=== PATIENT | female | born 1960 | race Caucasian/White ===

== ENCOUNTER 2020-08-20 08:58 | Outpatient (REF) | payer MEDICARE, MEDICAID, SELFPAY ==
--- NOTE | 2020-08-20 | MM_ITS ---
EXAMINATION: MM SCREENING DIGITAL BREAST TOMOSYNTHESIS, BILATERAL CLINICAL INFORMATION: Screening. Asymptomatic. The lifetime risk of breast cancer based on the Tyrer-Cuzick Model is 5%. COMPARISON: Mammography: 08/15/2019, 07/18/2018 TECHNIQUE: Digital breast tomosynthesis is performed in both the craniocaudal and mediolateral oblique views along with computer-aided detection (CAD). Synthesized 2D images are generated from the tomosynthesis. FINDINGS: The breasts are heterogeneously dense, which may obscure small masses (ACR BI-RADS breast composition Category c). Breast tissue borders on average fibroglandular. There are no significant masses, abnormal calcifications, or other abnormalities. There are scattered regional round calcifications in each breast. Low right axillary tail node again seen MLO view. No significant changes. IMPRESSION: No significant changes from prior studies. ASSESSMENT: BI-RADS 2: Benign RECOMMENDATION: Routine annual mammography screening. This patient's information was entered into a reminder system with a target due date for their next mammogram.
== END 2020-08-20 08:59 | disposition home or self-care (01) ==
LOC: HO.MAMMO 08:58
PROVIDERS: PCP Pediatrics; Visit Provider Pediatrics
DX: Z12.31 Encounter for screening mammogram for malignant neoplasm of breast (principal)
CPT/HCPCS: 77063; 77067; 78014

== ENCOUNTER 2020-12-02 09:13 | Outpatient (REF) | payer MEDICARE, MEDICAID, SELFPAY ==
--- NOTE | 2020-12-02 09:18 | MM_ITS ---
EXAMINATION: BONE DENSITOMETRY CLINICAL INDICATION: Osteoporosis. COMPARISON: Previous BD dated 11/24/2018 and baseline BD dated 07/27/2011. TECHNIQUE: Using a [employer] DXA System (software version: 13.1) manufactured by [employer], dual-energy x-ray absorptiometry was performed of the lumbar spine and left hip. The images are of good technical quality. Summary results are attached. FINDINGS: AP SPINE L1-L4: Current: BMD 0.942 g/cm2, Z-score -0.6, T-score -2.0, osteopenia, 1.3% increase from previous, 7.8% decrease from baseline (<5% change is not significant). Prior: BMD 0.930 g/cm2. Baseline: BMD 1.022 g/cm2. LEFT FEMUR, NECK: Current: BMD 0.638 g/cm2, Z-score -1.5, T-score -2.9, osteoporosis. Prior: BMD 0.661 g/cm2. Baseline: BMD 0.755 g/cm2. LEFT FEMUR, TOTAL: Current: BMD 0.600 g/cm2, Z-score -2.2, T-score -3.2, osteoporosis, 3.7% decrease from previous, 16.2% decrease from baseline (<5% change is not significant). Prior: BMD 0.623 g/cm2. Baseline: BMD 0.716 g/cm2. IDENTIFIED RISK FACTORS: Osteoporosis, tobacco use (current smoker), low calcium intake. Early menopause, secondary osteoporosis. HISTORY OF FRACTURE: None listed. MEDICATIONS: Calcium supplements or multivitamin, vitamin D. MM/XR DEXA axial skeleton IMPRESSION: 1. DIAGNOSIS: Osteoporosis based on the lowest T-score value of -3.2 in the total femur applying World Health Organization criteria. 2. 10-YEAR FRACTURE RISK PREDICTION, FRAX: Major osteoporotic fracture (clinical spine, forearm, hip or shoulder) 14.1%. Hip fracture 5.5%. 3. Treatment Recommendations: NOF guidelines recommend consideration for treatment in postmenopausal women and men age 50 and older presenting with the following: -A hip or vertebral (clinical or morphometric) fracture. -T-score less than or equal to -2.5 at the femoral neck or spine after appropriate evaluation to exclude secondary causes. -Low bone mass at the hip or spine and a 10-year fracture probability by FRAX of greater than or equal to 3% for hip fracture or greater than or equal to 20% for major osteoporotic fracture based on the [place] adapted WHO algorithm. 4. Other Recommendations: All treatment decisions require clinical judgment and consideration of individual patient factors, including patient preferences, comorbidities, previous drug use, risk factors not captured in the FRAX model (e.g. frailty, falls, vitamin D deficiency, increased bone turnover, interval significant decline in bone density) and possible under or overestimation of fracture risk by FRAX. Additional medical evaluation for secondary cause of low bone mineral density may be appropriate. FUTURE SCAN RECOMMENDATION: People with diagnosed cases of osteoporosis or at high risk for fracture should have regular bone mineral density tests. For patients eligible for Medicare, routine testing is allowed once every 2 years. The testing frequency can be increased to one year for patients who have rapidly progressing disease, those who are receiving or discontinuing medical therapy to restore bone mass, or have additional risk factors.
== END 2020-12-02 09:14 | disposition home or self-care (01) ==
LOC: HO.MAMMO 09:13
PROVIDERS: PCP Pediatrics; Visit Provider Pediatrics
DX: M81.0 Age-related osteoporosis without current pathological fracture (principal)
CPT/HCPCS: 77080

== ENCOUNTER 2021-06-15 10:10 | Outpatient (REF) | payer MEDICARE, MEDICAID, SELFPAY ==
--- NOTE | ~2021-06-15 | XR_ITS ---
EXAMINATION: XR CHEST CLINICAL INFORMATION: COPD. COMPARISON: None TECHNIQUE: 2 views of the chest were obtained. FINDINGS: Lungs are hyperinflated but clear of acute process. The heart size and vascularity is normal. No gross bony or body seen. XR/XR chest 2V IMPRESSION: Hyperinflated lungs without acute process.
== END 2021-06-15 10:11 | disposition home or self-care (01) ==
LOC: HO.XRAY 10:10
PROVIDERS: PCP Pediatrics; Visit Provider Internal Medicine
DX: J44.9 Chronic obstructive pulmonary disease, unspecified (principal); F17.210 Nicotine dependence, cigarettes, uncomplicated; Z79.899 Other long term (current) drug therapy
CPT/HCPCS: 71046; 99202

== ENCOUNTER 2021-06-26 09:53 | Outpatient (REF) | payer MEDICARE, MEDICAID, SELFPAY ==
--- NOTE | 2021-06-26 16:50 | PFT_ITS ---
Forced vital capacity is slightly decreased. FEV1 moderately decreased. [id number] is markedly decreased and MVV moderately decreased. Post bronchodilator therapy, there is a significant improvement in FEV1, [id number], and MVV. Total lung capacity normal and residual volume moderately increased. Diffusion capacity moderately decreased. CONCLUSION: Moderately severe obstructive airway disorder. Partial reversibility after bronchodilator therapy is noted. Clinical correlation recommended. MD JACOB Agustin/MODL / [id number]
== END 2021-06-26 09:54 | disposition home or self-care (01) ==
LOC: HO.RESP 09:53
PROVIDERS: PCP Pediatrics; Visit Provider Internal Medicine
DX: J44.9 Chronic obstructive pulmonary disease, unspecified (principal); F17.200 Nicotine dependence, unspecified, uncomplicated
CPT/HCPCS: 94060; 94727; 94729

== ENCOUNTER → 2021-07-09 11:11 | Outpatient (BNVA) | payer MEDICARE, MEDICAID, SELFPAY | PROVIDERS: PCP Pediatrics; Visit Provider Internal Medicine | DX: J44.9 Chronic obstructive pulmonary disease, unspecified (principal); F17.200 Nicotine dependence, unspecified, uncomplicated | CPT/HCPCS: 99212 ==

== ENCOUNTER 2021-07-17 13:57 | Outpatient (REF) | payer MEDICARE, MEDICAID, SELFPAY ==
--- NOTE | ~2021-07-17 | CT_ITS ---
EXAMINATION: CT CHEST SCREENING CLINICAL INFORMATION: Current smoker. COMPARISON: Previous chest x-ray June 2021. TECHNIQUE: Multidetector volumetric CT imaging of the chest is performed without contrast using low dose technique. Additional 2D coronal and sagittal reformatted images and axial 3D maximum intensity projection (MIP) images are generated on the CT workstation. This CT examination was performed using dose optimization techniques as appropriate, variously including the following: *Automated exposure control *Adjustment of mA and/or kV according to patient size (this includes techniques or standardized protocols for targeted exams where dose is matched to indication/reason for exam; i.e. extremities or head) *Use of iterative reconstruction technique DLP: 36 mGy-cm FINDINGS: LUNGS: There is emphysema. There is a 4 mm semisolid left upper lobe nodule axial image 61 series 4. There is a 2 mm peripheral right upper lobe nodule axial image 89 series 4. There is a 3 mm semisolid left upper lobe peripheral nodule axial image 132 series 4. There is a 4 mm semisolid left lower lobe nodule axial image 204 series 4. There is a 2 mm peripheral or subpleural left lower lobe nodule axial image 200 series 4. There is a 2 mm peripheral or subpleural left lower lobe nodule adjacent to the fissure axial image 236 series 4. There is a 3 mm left upper lobe nodule axial 240 series 4. There is a 3 mm calcified right middle lobe nodule axial image 252 series 4. There is a 3 mm semisolid left lower lobe nodule axial image 275 series 4. There is a 4 mm semisolid right lower lobe nodule axial image 292 series 4. There is linear scarring or subsegmental atelectasis in the right upper and middle lobes. No endobronchial or endotracheal lesion is seen. MEDIASTINUM: The heart does not appear enlarged. There is a trace pericardial effusion. There is coronary artery calcification. The thoracic aorta is normal in caliber. The aorta is heavily calcified. There are no enlarged hilar or mediastinal lymph nodes. The visualized thyroid gland is unremarkable. PLEURA: There is no pleural effusion. No pleural mass or thickening. AXILLA: No lymphadenopathy. UPPER ABDOMEN: The aorta is heavily calcified. OSSEOUS STRUCTURES: There are degenerative changes of the spine. CT/CT lung screening IMPRESSION: Emphysema. Small pulmonary nodules, largest measuring 4 mm in the left upper and right lower lobes. Coronary artery and aortic calcification. ASSESSMENT: Lung-RADS category 2: Benign. RECOMMENDATION: Annual low-dose chest CT follow-up recommended.
== END 2021-07-17 13:58 | disposition home or self-care (01) ==
LOC: HO.CT 13:57
PROVIDERS: Visit Provider Physician Assistant Medical
DX: Z12.2 Encounter for screening for malignant neoplasm of respiratory organs (principal); F17.210 Nicotine dependence, cigarettes, uncomplicated
CPT/HCPCS: 71271

== ENCOUNTER 2021-07-23 14:13 | Outpatient (REF) | payer MEDICARE, MEDICAID, SELFPAY ==
--- NOTE | ~2021-07-23 | XR_ITS ---
EXAMINATION: XR FOOT, LEFT CLINICAL INFORMATION: Pain left foot COMPARISON: None TECHNIQUE: AP, lateral, and oblique views of the left foot. FINDINGS: There is no acute or healing fracture, dislocation, destructive process. No ankle capsular effusion. The retrocalcaneal recess is preserved. The subtalar joint appears normal. No calcaneal spurring. The midfoot and MTP joints show no focal narrowing or erosive change. There is mild narrowing interphalangeal joints. No erosive changes. XR/XR foot LT min 3V IMPRESSION: Mild narrowing interphalangeal joints. No erosive changes.
--- NOTE | ~2021-07-23 | XR_ITS ---
EXAMINATION: XR FOOT, RIGHT CLINICAL INFORMATION: Pain in right foot COMPARISON: None TECHNIQUE: AP, lateral, and oblique views of the right foot. FINDINGS: No fracture. No dislocation. Normal mineralization and alignment. No radiopaque foreign body. XR/XR foot RT min 3V IMPRESSION: No acute osseous abnormality of the right foot.
== END 2021-07-23 14:14 | disposition home or self-care (01) ==
LOC: HO.XRAY 14:13
PROVIDERS: Absent Provider Pediatrics; PCP Pediatrics; Visit Provider Internal Medicine
DX: M79.671 Pain in right foot (principal); M79.672 Pain in left foot
CPT/HCPCS: 73630

== ENCOUNTER 2021-08-21 09:34 | Outpatient (REF) | payer MEDICARE, MEDICAID, SELFPAY ==
--- NOTE | ~2021-08-21 | MM_ITS ---
EXAMINATION: MM SCREENING DIGITAL BREAST TOMOSYNTHESIS, BILATERAL CLINICAL INFORMATION: Screening. Asymptomatic. The lifetime risk of breast cancer based on the Tyrer-Cuzick Model is 5%. COMPARISON: Mammography: 08/20/2020, 08/15/2019, 07/18/2018 TECHNIQUE: Digital breast tomosynthesis is performed in both the craniocaudal and mediolateral oblique views along with computer-aided detection (CAD). Synthesized 2D images are generated from the tomosynthesis. Additional bilateral MLO views are obtained. FINDINGS: The breasts are heterogeneously dense, which may obscure small masses (ACR BI-RADS breast composition Category c). There are no significant masses, abnormal calcifications, or other abnormalities. Breast tissue composition borders on average fibroglandular. Parenchymal pattern is similar to prior studies. There are scattered bilateral calcifications again seen similar in number and distribution to prior study. Axillary nodes are stable. Skin contours are smooth. No significant changes. MM/MM tomosynthesis screening BI IMPRESSION: No mammographic evidence of malignancy. ASSESSMENT: BI-RADS 2: Benign RECOMMENDATION: Routine annual mammography screening. This patient's information was entered into a reminder system with a target due date for their next mammogram.
== END 2021-08-21 09:35 | disposition home or self-care (01) ==
LOC: HO.MAMMO 09:34
PROVIDERS: Visit Provider Pediatrics
DX: Z12.31 Encounter for screening mammogram for malignant neoplasm of breast (principal)
CPT/HCPCS: 77063; 77067

== ENCOUNTER 2021-09-10 13:57 | Outpatient (REF) | payer MEDICARE, MEDICAID, SELFPAY ==
--- NOTE | ~2021-09-10 | CT_ITS ---
EXAMINATION: CT ANGIOGRAM HEAD CLINICAL INFORMATION: Cerebral aneurysm. COMPARISON: None available. TECHNIQUE: Initial noncontrast ruby on rails engineer imaging of the head was performed. Noncontrast head CT was also performed. Test bolus sequences followed by intravenous administration 75 mL of Omnipaque 350. Helical imaging was performed in the axial plane from the skull base to the skull vertex. Delayed postcontrast imaging of the head was also performed. The data was processed at the interventional radiology technologist's workstation for generation of MIP sequences. Angled MIPs and volume rendered reformatted images were also generated at an offline 3D workstation. Stenoses are assessed in accordance with NASCET criteria unless otherwise indicated. This CT examination was performed using dose optimization techniques as appropriate, variously including the following: *Automated exposure control. *Adjustment of mA and/or kV according to patient size (this includes techniques or standardized protocols for targeted exams where dose is matched to indication/reason for exam; i.e. extremities or head). *Use of iterative reconstruction technique. DLP: 1933 mGy-cm FINDINGS: CT Head: Changes of prior right pterional craniotomy. Metallic aneurysm clips are in place along the right carotid terminus and M1-M2 junction of the right MCA. There is no evidence of acute intracranial hemorrhage or edematous territorial infarction. A few foci of hypoattenuation in the periventricular and deep white matter are consistent with mild microangiopathy. Rodriguez-white matter differentiation is preserved. The ventricles are normal in size and configuration. No evidence for obstructive hydrocephalus. No abnormal mass effect or midline shift. No extra-axial fluid collections. No pathologic intra-axial enhancement or regional oligemia. No acute soft tissue or osseous abnormalities. Mild mucosal thickening of the paranasal sinuses. Rightward nasal septal spurring. The mastoid air cells and middle ear cavities are clear. Moderate degenerative arthropathy of the temporal mandibular joints. Brain CTA: Intracranial Internal Carotid Arteries: Mild calcific atherosclerotic disease of the intracranial internal carotid arteries without occlusion or flow-limiting stenosis. Triangular 0.2 cm right-sided and 0.3 cm left-sided infundibulotomy of the origins of the posterior commuting arteries. Right Anterior Cerebral Artery: Normal A1 segment. Normal opacification of the distal segments of the JUSTO. Left Anterior Cerebral Artery: Normal A1 segment. Normal opacification of the distal segments of the JUSTO. Anterior Communicating Artery: Normal. Right Middle Cerebral Artery: Normal opacification of the M1 segment of the MCA without focal stenosis or occlusion. Normal arborization of the distal segments. Left Middle Cerebral Artery: Normal opacification of the M1 segment of the MCA without focal stenosis or occlusion. Normal arborization of the distal segments. Right Vertebral Artery: Normal opacification of the V4 segment. Normal opacification of the proximal segments of the posterior inferior cerebellar artery. Left Vertebral Artery: Normal opacification of the V4 segment. Normal opacification of the proximal segments of the posterior inferior cerebellar artery. Basilar Artery: Normal opacification without focal stenosis or occlusion. Normal appearance of the proximal superior cerebellar arteries. Right Posterior Cerebral Artery: Normal P1 segment. Normal posterior communicating artery. Normal opacification of the distal segments of the MEDIA STRATEGIST. Left Posterior Cerebral Artery: The P1 segment is diminutive. origin of the MEDIA STRATEGIST with robust opacification of the posterior communicating artery. Normal opacification of the distal segments of the MEDIA STRATEGIST. Normal opacification of the superior sagittal, straight, transverse, and sigmoid sinuses. CT/CT angio head IMPRESSION: 1. Changes of prior surgical clipping of right ICA and MCA aneurysms. 2. Otherwise, CTA of the head without proximal occlusion, flow-limiting stenosis, or persistent opacification of aneurysms.
[2021-09-10] MEDS: iohexoL 350 MG/ML 100 ML INFUS..BTL 75 ML IV (15:35)
== END 2021-09-10 13:58 | disposition home or self-care (01) ==
LOC: HO.CT 13:57
PROVIDERS: PCP Pediatrics; Visit Provider Internal Medicine
DX: I67.1 Cerebral aneurysm, nonruptured (principal)
CPT/HCPCS: 70496; Q9967

== ENCOUNTER → 2021-12-03 11:11 | Outpatient (BNVA) | payer MEDICARE, MEDICAID, SELFPAY | PROVIDERS: PCP Pediatrics; Visit Provider Internal Medicine | DX: J44.9 Chronic obstructive pulmonary disease, unspecified (principal); F17.200 Nicotine dependence, unspecified, uncomplicated | CPT/HCPCS: Q3014 ==

== ENCOUNTER → 2022-02-08 10:24 | Outpatient (BNVA) | payer MEDICARE, MEDICAID, SELFPAY | PROVIDERS: PCP Pediatrics; Visit Provider Internal Medicine | DX: J44.1 Chronic obstructive pulmonary disease with (acute) exacerbation (principal); F17.210 Nicotine dependence, cigarettes, uncomplicated | CPT/HCPCS: 99212 ==

== ENCOUNTER → 2022-02-22 14:13 | Outpatient (BNVA) | payer MEDICARE, MEDICAID, SELFPAY | PROVIDERS: PCP Pediatrics; Visit Provider Internal Medicine | DX: J44.1 Chronic obstructive pulmonary disease with (acute) exacerbation (principal); F17.210 Nicotine dependence, cigarettes, uncomplicated | CPT/HCPCS: 99212 ==

== ENCOUNTER → 2022-05-25 11:31 | Outpatient (BNVA) | payer MEDICARE, MEDICAID, SELFPAY | PROVIDERS: PCP Pediatrics; Visit Provider Internal Medicine | DX: J44.9 Chronic obstructive pulmonary disease, unspecified (principal); F17.210 Nicotine dependence, cigarettes, uncomplicated; Z79.899 Other long term (current) drug therapy | CPT/HCPCS: 99212 ==

== ENCOUNTER 2022-09-10 11:14 | Outpatient (REF) | payer MEDICARE, MEDICAID, SELFPAY ==
--- NOTE | ~2022-09-10 | MM_ITS ---
EXAMINATION: MM SCREENING DIGITAL BREAST TOMOSYNTHESIS, BILATERAL CLINICAL INFORMATION: Screening. Asymptomatic. The lifetime risk of breast cancer based on the Tyrer-Cuzick Model is 4%. COMPARISON: Mammography: 08/21/2021, 08/20/2020, 08/15/2019 TECHNIQUE: Digital breast tomosynthesis is performed in both the craniocaudal and mediolateral oblique views along with computer-aided detection (CAD). Synthesized 2D images are generated from the tomosynthesis. FINDINGS: The breasts are heterogeneously dense, which may obscure small masses (ACR BI-RADS breast composition Category c). Breast tissue composition borders on average fibroglandular. Parenchymal pattern is similar to prior exams and there is no developing density or architectural abnormality. Scattered bilateral punctate round calcifications are similar to prior exams. There are no significant masses, abnormal calcifications, or other abnormalities. The axilla and skin contours are unremarkable. MM/MM tomosynthesis screening BI IMPRESSION: No mammographic evidence of malignancy. ASSESSMENT: BI-RADS 2: Benign RECOMMENDATION: Routine annual mammography screening. This patient's information was entered into a reminder system with a target due date for their next mammogram.
== END 2022-09-10 11:15 | disposition home or self-care (01) ==
LOC: HO.MAMMO 11:14
PROVIDERS: PCP Pediatrics; Visit Provider Pediatrics
DX: Z12.31 Encounter for screening mammogram for malignant neoplasm of breast (principal)
CPT/HCPCS: 77063; 77067

== ENCOUNTER → 2022-11-23 09:44 | Outpatient (BNVA) | payer MEDICARE, MEDICAID, SELFPAY | PROVIDERS: PCP Pediatrics; Visit Provider Internal Medicine | DX: J44.9 Chronic obstructive pulmonary disease, unspecified (principal); F17.210 Nicotine dependence, cigarettes, uncomplicated; Z79.899 Other long term (current) drug therapy | CPT/HCPCS: 99212 ==

== ENCOUNTER 2022-12-16 09:54 | Outpatient (REF) | payer MEDICARE, MEDICAID, SELFPAY ==
--- NOTE | ~2022-12-16 | CT_ITS ---
EXAMINATION: CT CHEST SCREENING CLINICAL INFORMATION: Current smoker. Nicotine dependence. COMPARISON: 07/17/2021 TECHNIQUE: Multidetector volumetric CT imaging of the chest is performed without contrast using low dose technique. Additional 2D coronal and sagittal reformatted images and axial 3D maximum intensity projection (MIP) images are generated on the CT workstation. This CT examination was performed using dose optimization techniques as appropriate, variously including the following: *Automated exposure control *Adjustment of mA and/or kV according to patient size (this includes techniques or standardized protocols for targeted exams where dose is matched to indication/reason for exam; i.e. extremities or head) *Use of iterative reconstruction technique DLP: 42 mGy-cm FINDINGS: LUNGS: The central airways are patent. Moderate centrilobular and paraseptal emphysema. No dense consolidation. Multiple pulmonary nodules are again noted with select nodules characterized below: 1. 0.3 cm left apical nodule on series 5 image 77 is unchanged. 2. Peripheral 0.2 cm right upper lobe nodule on series 5 image 102 is unchanged. 3. 0.3 cm peripheral left upper lobe nodule on series 5 image 153 is unchanged. 4. 0.4 cm posterior right lower lobe nodule on series 5 image 282 is unchanged. There are additional small nodules which are also unchanged. No new pulmonary nodules. A few calcified granulomata are also present. MEDIASTINUM: Normal heart size. Mild coronary artery calcification. No pericardial effusion. No mediastinal lymphadenopathy. CORONARY ARTERY CALCIFICATION: Present PLEURA: There is no pleural effusion. No pleural mass or thickening. AXILLA: No lymphadenopathy. UPPER ABDOMEN: Unremarkable OSSEOUS STRUCTURES: No acute or suspicious osseous abnormality. Mild degenerative change throughout the spine. Focus of sclerosis in the T4 vertebral body is unchanged. CT/CT lung screening IMPRESSION: Moderate emphysema. Multiple small pulmonary nodules are unchanged from prior imaging. ASSESSMENT: Lung-RADS category 2: Benign RECOMMENDATION: Routine annual low-dose CT screening in 12 months.
== END 2022-12-16 09:55 | disposition home or self-care (01) ==
LOC: HO.CT 09:54
PROVIDERS: PCP Pediatrics; Visit Provider Physician Assistant Medical
DX: Z12.2 Encounter for screening for malignant neoplasm of respiratory organs (principal); F17.210 Nicotine dependence, cigarettes, uncomplicated
CPT/HCPCS: 71271

== ENCOUNTER 2022-12-22 12:47 | Outpatient (REF) | payer MEDICARE, MEDICAID, SELFPAY ==
--- NOTE | ~2022-12-22 | XR_ITS ---
EXAMINATION: XR HAND, LEFT CLINICAL INFORMATION: Pain COMPARISON: None TECHNIQUE: 3 views of the hand FINDINGS: No fracture or dislocation. Joint spaces are maintained. No cortical erosion. Soft tissues are unremarkable. XR/XR hand LT min 3V IMPRESSION: No acute osseous abnormality.
== END 2022-12-22 12:48 | disposition home or self-care (01) ==
LOC: HO.XRAY 12:47
PROVIDERS: PCP Pediatrics; Visit Provider Pediatrics
DX: M79.645 Pain in left finger(s) (principal)
CPT/HCPCS: 73130

== ENCOUNTER 2022-12-29 08:36 | Outpatient (REF) | payer MEDICARE, MEDICAID, SELFPAY ==
--- NOTE | ~2022-12-29 | MM_ITS ---
EXAMINATION: BONE DENSITOMETRY CLINICAL INDICATION: Age-related osteoporosis without current pathological fracture. Post menopausal. COMPARISON: Previous BD dated 12/02/2020 and baseline BD dated 07/27/2011. TECHNIQUE: Using a [employer] DXA System (software version: 13.1) manufactured by [email or web address], dual-energy x-ray absorptiometry was performed of the lumbar spine and left hip. The images are of good technical quality. Summary results are attached. FINDINGS: AP SPINE L1-L4: Current: BMD 0.853 g/cm2, Z-score -1.3, T-score -2.7, osteoporosis, 9.4% decrease from previous, 16.5% decrease from baseline (<5% change is not significant). Prior: BMD 0.942 g/cm2. Baseline: BMD 1.022 g/cm2. LEFT FEMUR, NECK: Current: BMD 0.712 g/cm2, Z-score -1.0, T-score -2.3, osteopenia. Prior: BMD 0.638 g/cm2. Baseline: BMD 0.755 g/cm2. LEFT FEMUR, TOTAL: Current: BMD 0.640 g/cm2, Z-score -1.8, T-score -2.9, osteoporosis, 6.7% increase from previous, 10.6% decrease from baseline (<5% change is not significant). Prior: BMD 0.600 g/cm2. Baseline: BMD 0.716 g/cm2. IDENTIFIED RISK FACTORS: Osteoporosis. Current smoker. Secondary osteoporosis (early menopause). HISTORY OF FRACTURE: None listed. MEDICATIONS: Calcium supplement and/or multivitamin. Vitamin D. MM/XR DEXA axial skeleton IMPRESSION: 1. DIAGNOSIS: Osteoporosis based on the lowest T-score value of -2.9 in the total femur applying World Health Organization criteria. 2. 10-YEAR FRACTURE RISK PREDICTION, FRAX: According to the guidelines, FRAX calculation should only be performed on patients in the osteopenia bone density category.?Therefore, FRAX was not performed on this patient.? 3. Treatment Recommendations: NOF guidelines recommend consideration for treatment in postmenopausal women and men age 50 and older presenting with the following: -A hip or vertebral (clinical or morphometric) fracture. -T-score less than or equal to -2.5 at the femoral neck or spine after appropriate evaluation to exclude secondary causes. -Low bone mass at the hip or spine and a 10-year fracture probability by FRAX of greater than or equal to 3% for hip fracture or greater than or equal to 20% for major osteoporotic fracture based on the [place] adapted WHO algorithm. 4. Other Recommendations: All treatment decisions require clinical judgment and consideration of individual patient factors, including patient preferences, comorbidities, previous drug use, risk factors not captured in the FRAX model (e.g. frailty, falls, vitamin D deficiency, increased bone turnover, interval significant decline in bone density) and possible under or overestimation of fracture risk by FRAX. Additional medical evaluation for secondary cause of low bone mineral density may be appropriate. FUTURE SCAN RECOMMENDATION: People with diagnosed cases of osteoporosis or at high risk for fracture should have regular bone mineral density tests. For patients eligible for Medicare, routine testing is allowed once every 2 years. The testing frequency can be increased to one year for patients who have rapidly progressing disease, those who are receiving or discontinuing medical therapy to restore bone mass, or have additional risk factors.
== END 2022-12-29 08:37 | disposition home or self-care (01) ==
LOC: HO.MAMMO 08:36
PROVIDERS: PCP Pediatrics; Visit Provider Pediatrics
DX: M81.0 Age-related osteoporosis without current pathological fracture (principal)
CPT/HCPCS: 77080

== ENCOUNTER 2023-04-07 11:39 | Outpatient (REF) | payer MEDICARE, MEDICAID, SELFPAY ==
--- NOTE | 2023-04-07 10:15 | EMG_ITS ---
Left median and ulnar motor and sensory studies were performed. Left radial sensory study was performed and paraspinal muscles were tested with a needle. IMPRESSION: Mild left ulnar neuropathy across cubital tunnel. MD JAYLIN Herndon/MEENAKSHI / [id number]
== END 2023-04-07 11:40 | disposition home or self-care (01) ==
LOC: HO.NEURO 11:39
PROVIDERS: PCP Pediatrics; Visit Provider Pediatrics
DX: G56.02 Carpal tunnel syndrome, left upper limb (principal)
CPT/HCPCS: 95886; 95909

== ENCOUNTER 2023-05-24 10:36 | Outpatient (AMB) | payer MEDICARE, MEDICAID, SELFPAY ==
--- NOTE | 2023-05-24 10:50 | MHC.OFFVIS ---
Intake Vital Signs 05/24/23 10:52 Height 5 ft 3 in Weight 130 lb BMI 23.0 BP 122/70 Blood Pressure Location Lt brachial Position Sitting Pulse 77 Pulse Source Pulse Oximeter Pulse Oximetry (%) 94 Oxygen Delivery Method Room Air Intake Visit Reasons: COPD Intake Note: pt is here for follow up and states she is doing okay and she wants to mention that after Breo she has a double breath to clear it. It Infrastructure Consultant Required: No Allergies No Known Allergies Allergy (Verified 05/24/23 11:22) Medication List - Last Reconciled 05/24/23 by Latasha Caceres MD albuterol sulfate 90 mcg/actuation (Ventolin HFA) 2 puffs inhalation Q6H PRN Breo Ellipta 200-25 mcg/dose (fluticasone furoate-vilanterol) 1 inh inhalation Q24H 90 days NS cholecalciferol (vitamin D3) 25 mcg PO DAILY multivitamin (Daily Multi-Vitamin tablet) 1 tab PO DAILY tiotropium bromide (Spiriva with HandiHaler) 1 cap inhalation DAILY vitamin B complex (B Complex-Vitamin B12 tablet) 1 tab PO DAILY Do you need a note to return to daycare/school/sports/work: No HPI COPD HPI Details This 62 years old very pleasant female is here for her 6 months follow-up. Breathing sarmiento has remained very stable, and needing to use the rescue inhaler only once in a while. Gets short of breath if she has to climb stairs or walk a few blocks on the level ground. She has no problem is day-to-day activity. She does have mild intermittent cough, but that is due to continued smoking. SHE SMOKES ABOUT 10 CIGARETTES A DAY. She does participate in annual lung screening program. Lost LDCT, in December 2022, was benign, but she does have multiple small pulmonary nodules. [facility] Medical History (Updated 05/24/23 @ 11:28 by Latasha Caceres MD) COPD (chronic obstructive pulmonary disease) COPD exacerbation COVID-19 Depression with anxiety History of cerebral aneurysm (~2014) History of COVID-19 (~03/2021) History of TIA (transient ischemic attack) (~2014) Osteoporosis (~2013) Personal history of nicotine dependence Pulmonary nodules Surgical History History of surgery for cerebral aneurysm (~2014) History of tubal ligation (~1988) Social History Alcohol intake: current Alcohol intake frequency: holidays/special occasions only Patient Tobacco Use Status: Current everyday Tobacco user Tobacco use type: Cigarette Cigarettes Per Day: 8 Years Smoked: 42 (onset 18 - 1ppd x 20yrsn now 1/2ppd - 30pyh) Advance Directives Date on File: 08/20/20 Review of Systems Const All systems reviewed & are unremarkable except as noted in HPI and below Eyes Reports no additional complaints ENT Reports nasal congestion (Mild) and Reports neck pain (Complains of mild stiffness of the neck and pain) Card Denies chest pain, Denies irregular heart rhythm and Denies leg edema Resp Reports as per HPI GI Reports no additional complaints Reports no additional complaints Musc Reports neck pain (Complains of mild stiffness of the neck and pain) Skin/Breast Reports system reviewed and no additional complaints, except as documented Neuro Reports no additional complaints Psych Reports no additional complaints Physical Exam Vital Signs: Last Vital Signs Pulse 77 05/24/23 10:52 BP 122/70 05/24/23 10:52 Pulse Ox 94 05/24/23 10:52 Oxygen Delivery Method Room Air 05/24/23 10:52 BMI result Body Mass Index 23.0 Const General: comfortable, no acute distress, alert and awake Orientation/consciousness: patient oriented x3 HEENT Head: Yes normal to inspection General nose exam: No nasal polyps present and No nasal discharge present Face and sinus: Yes sinuses nontender Mouth: oropharynx normal Throat: Yes posterior oropharynx normal Eyes General: appearance normal, both eyes and all related structures Neck Neck: Yes normal visual inspection, Yes no lymphadenopathy, Yes trachea midline and Yes no JVD Thyroid: Thyroid normal Chest Chest palpation & inspection: normal inspection of the chest, normal palpation of entire chest wall and no tenderness Resp Other: Percussion note is resonant, breath sounds are diminished on both sides with prolonged expiratory phase. No wheezes rhonchi or crepitations are heard today. Cardio Palpation: normal PMI Rate: regular rate Rhythm: regular rhythm Heart sounds: no gallops and no murmurs Peripheral pulses: Peripheral pulses 2+ throughout GI Palpation (GI): Soft to palpation, nontender, No hepatosplenomegaly present and no masses Auscultation: normal bowel sounds Back/Spine/Pelvis Thoracic/Lumbar Spine: thoracic and lumbar spine normal to inspection Skin General skin exam: no rashes or lesions noted Neuro General: patient oriented x3 and no focal motor deficits Cranial nerves: Yes CN's II-XII intact bilaterally Extrem General: Yes normal to inspection, Yes no clubbing, cyanosis or edema and Yes no calf tenderness Psych Appearance: grossly normal and well kempt Speech and movement: Normal speech and movement present Results Reviewed Results Reviewed: LDCT, SCAN RESULTS IN DECEMBER 2022 REVIEWED WITH THE PATIENT. Multiple pulmonary nodules but small without any change, category 2, benign. Assessment & Plan Assessment & Plan (1) Smoker: Comment: Long-time smoker, trying to quit slowly on her own. I have offered help, with counseling, use of nicotine patches, or even referral to Quit smoking program . She is doing it on her own and is still at 10 cigarettes a day . She is in ANNUAL LDCT .SCREENING PROGRAM. ADVISED TO CONTINUE, HAVING ANNUAL CT SCAN. Code(s): F17.200 - Nicotine dependence, unspecified, uncomplicated (2) COPD (chronic obstructive pulmonary disease): Comment: Moderately severe COPD, good response to bronchodilators, c/w ACOS . Has remained under control and stable. [place] : Continue Spiriva HandiHaler 1 inhalation daily Breo 200-25 1 inhalation daily , Albuterol HFA 2 puffs Q 6 hours p.r.n. Code(s): J44.9 - Chronic obstructive pulmonary disease, unspecified (3) Pulmonary nodules: Comment: MULTIPLE SMALL PULMONARY NODULES, BENIGN. BEING, SCREENED WITH LDCT ON AN ANNUAL BASIS, Code(s): R91.8 - Other nonspecific abnormal finding of lung field Coding Level of Care Code Est Pt Level 3 (44378) Diagnoses Smoker F17.200 COPD (chronic obstructive pulmonary disease) J44.9 Pulmonary nodules R91.8
[2023-05-24 10:52] VITALS: BP 122/70; PULSE 77; O2SAT 94; BMI 23.0
== END 2023-05-24 11:28 | disposition home or self-care (01) ==
PROVIDERS: PCP Pediatrics; Visit Provider Internal Medicine
DX: F17.200 Nicotine dependence, unspecified, uncomplicated (principal); J44.9 Chronic obstructive pulmonary disease, unspecified; R91.8 Other nonspecific abnormal finding of lung field
CPT/HCPCS: 99213

== ENCOUNTER → 2023-05-24 10:36 | Outpatient (BNVA) | payer MEDICARE, MEDICAID, SELFPAY | PROVIDERS: Visit Provider Internal Medicine | DX: J44.1 Chronic obstructive pulmonary disease with (acute) exacerbation (principal); R91.8 Other nonspecific abnormal finding of lung field; F17.200 Nicotine dependence, unspecified, uncomplicated; Z86.73 Personal history of transient ischemic attack (TIA), and cerebral infarction without residual deficits; Z79.899 Other long term (current) drug therapy | CPT/HCPCS: 99212 ==

== ENCOUNTER 2023-10-07 09:25 | Outpatient (REF) | payer MEDICARE, MEDICAID, SELFPAY ==
--- NOTE | ~2023-10-07 | MM_ITS ---
EXAMINATION: MM SCREENING DIGITAL BREAST TOMOSYNTHESIS, BILATERAL CLINICAL INFORMATION: Screening. Asymptomatic. COMPARISON: Mammography: This study is compared with prior exams dating back to 2018. TECHNIQUE: Digital breast tomosynthesis is performed in both the craniocaudal and mediolateral oblique views along with computer-aided detection (CAD). Synthesized 2D images are generated from the tomosynthesis. FINDINGS: There are scattered areas of fibroglandular density (ACR BI-RADS breast composition Category b). There are no significant masses, abnormal calcifications, or other abnormalities. Few, bilateral, unchanged, benign calcifications are present. MM/MM tomosynthesis screening BI IMPRESSION: No mammographic evidence of malignancy. ASSESSMENT: BI-RADS BI-RADS 2 - Benign Findings RECOMMENDATION: Routine annual mammography screening. 1 year F/U This examination should not preclude the clinical evaluation of a suspicious palpable abnormality. This patient's information was entered into a reminder system with a target due date for their next mammogram.
== END 2023-10-07 09:26 | disposition home or self-care (01) ==
LOC: HO.MAMMO 09:25
PROVIDERS: PCP Pediatrics; Visit Provider Pediatrics
DX: Z12.31 Encounter for screening mammogram for malignant neoplasm of breast (principal)
CPT/HCPCS: 77063; 77067

== ENCOUNTER → 2023-10-07 09:45 | Outpatient (BNV) | payer MEDICARE, MEDICAID, SELFPAY | PROVIDERS: PCP Pediatrics; Visit Provider Radiology Diagnostic Radiology | DX: Z12.31 Encounter for screening mammogram for malignant neoplasm of breast (principal) | CPT/HCPCS: 77063; 77067 ==

== ENCOUNTER 2023-12-26 15:23 | Outpatient (AMB) | payer MEDICARE, MEDICAID, SELFPAY ==
[2023-12-26 15:45] VITALS: BP 120/70; PULSE 86; O2SAT 98; BMI 22.3
--- NOTE | 2023-12-26 15:45 | A.OFFVIS_ITS ---
Intake Vital Signs 12/26/23 15:45 Height 5 ft 3 in Weight 125 lb 10.616 oz BMI 22.3 BP 120/70 Blood Pressure Location Lt brachial Position Sitting Pulse 86 Pulse Source Pulse Oximeter Pulse Oximetry (%) 98 Oxygen Delivery Method Room Air Intake Visit Reasons: copd Intake Note: pt is here for follow up and states she is feeling fine. 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 Allergies acetaminophen [From Percocet] Adverse Reaction (Severe, Verified 12/26/23 16:08) upset stomach oxycodone [From Percocet] Adverse Reaction (Severe, Verified 12/26/23 16:08) upset stomach Medication List - Last Reconciled 12/26/23 by Latasha Caceres MD albuterol sulfate 90 mcg/actuation (Ventolin HFA) 2 puffs inhalation Q6H PRN 30 days Breo Ellipta 200-25 mcg/dose (fluticasone furoate-vilanterol) 1 ea PO DAILY NS cholecalciferol (vitamin D3) 25 mcg PO DAILY multivitamin (Daily Multi-Vitamin tablet) 1 tab PO DAILY tiotropium bromide (Spiriva with HandiHaler) 1 cap inhalation DAILY 90 days vitamin B complex (B Complex-Vitamin B12 tablet) 1 tab PO DAILY Do you need a note to return to daycare/school/sports/work: No HPI copd HPI Details Sugar 63 years old very pleasant female is coming after 6 months for follow-up. Breathing has been very stable without. Any acute exacerbation She uses Breo in the morning and also Spiriva HandiHaler 1 capsule in the m orning. She has used albuterol HFA only once in a while. She has had no acute. Exacerbation in the last 6 months Still smoking 10 cigarettes a day, last LDCT was in December 2022, and she will be getting. another once own [facility] Medical History Pulmonary nodules COPD exacerbation COVID-19 History of COVID-19 (~03/2021) History of TIA (transient ischemic attack) (~2014) Depression with anxiety History of cerebral aneurysm (~2014) Osteoporosis (~2013) Personal history of nicotine dependence COPD (chronic obstructive pulmonary disease) Surgical History History of surgery for cerebral aneurysm (~2014) History of tubal ligation (~1988) Social History Alcohol intake: current Alcohol intake frequency: holidays/special occasions only Patient Tobacco Use Status: Current everyday Tobacco user Tobacco use type: Cigarette Cigarettes Per Day: 8 Years Smoked: 42 (onset 18 - 1ppd x 20yrsn now 1/2ppd - 30pyh) Advance Directives Date on File: 08/20/20 Review of Systems Const All systems reviewed & are unremarkable except as noted in HPI and below Eyes Reports no additional complaints ENT Reports nasal congestion (Mild) and Reports neck pain (Complains of mild stif fness of the neck and pain) Card Denies chest pain, Denies irregular heart rhythm and Denies leg edema Resp Reports as per HPI GI Reports no additional complaints Reports no additional complaints Musc Reports neck pain (Complains of mild stiffness of the neck and pain) Skin/Breast Reports system reviewed and no additional complaints, except as documented Neuro Reports no additional complaints Psych Reports no additional complaints Physical Exam Vital Signs: Last Vital Signs Pulse 86 12/26/23 15:45 BP 120/70 12/26/23 15:45 Pulse Ox 98 12/26/23 15:45 Oxygen Delivery Method Room Air 12/26/23 15:45 BMI result Body Mass Index 22.3 Const General: comfortable, no acute distress, alert and awake Orientation/consciousness: patient oriented x3 HEENT Head: Yes normal to inspection General nose exam: No nasal polyps present and No nasal discharge present Face and sinus: Yes sinuses nontender Mouth: oropharynx normal Throat: Yes posterior oropharynx normal Eyes General: appearance normal, both eyes and all related structures Neck Neck: Yes normal visual inspection, Yes no lymphadenopathy, Yes trachea midline and Yes no JVD Thyroid: Thyroid normal Chest Chest palpation & inspection: normal inspection of the chest, normal palpation of entire chest wall and no tenderness Resp Other: Percussion note is resonant, breath sounds are diminished on both sides with prolonged expiratory phase. No wheezes rhonchi or crepitations are heard today. Cardio Palpation: normal PMI Rate: regular rate Rhythm: regular rhythm Heart sounds: no gallops and no murmurs Peripheral pulses: Peripheral pulses 2+ throughout GI Palpation (GI): Soft to palpation, nontender, No hepatosplenomegaly present and no masses Auscultation: normal bowel sounds Back/Spine/Pelvis Thoracic/Lumbar Spine: thoracic and lumbar spine normal to inspection Skin General skin exam: no rashes or lesions noted Neuro General: patient oriented x3 and no focal motor deficits Cranial nerves: Yes CN's II-XII intact bilaterally Extrem General: Yes normal to inspection, Yes no clubbing, cyanosis or edema and Yes no calf tenderness Psych Appearance: grossly normal and well kempt Speech and movement: Normal speech and movement present Assessment & Plan Assessment & Plan (1) COPD (chronic obstructive pulmonary disease): Comment: Moderately severe COPD, good response to bronchodilators, c/w ACOS . Has remained under control and stable. Code(s): J44.9 - Chronic obstructive pulmonary disease, unspecified Plan: [place] : Continue Spiriva HandiHaler 1 inhalation daily Breo 200-25 1 inhalation daily , Albuterol HFA 2 puffs Q 6 hours p.r.n. (2) Smoker: Comment: Long-time smoker, trying to quit slowly on her own. I have offered help, with counseling, use of nicotine patches, or even referral to Quit smoking program . She is doing it on her own and is still at 10 cigarettes a day . She is in ANNUAL LDCT .SCREENING PROGRAM. Code(s): F17.200 - Nicotine dependence, unspecified, uncomplicated Plan: Had a long discussion about quitting smoking. She does not want to go to the quit smoking clinic. Also does not want to use. The nicotine patches I advised her to use only half cigarette at a time, and try to cut down the number to 5 cigarettes a day (3) Pulmonary nodules: Comment: MULTIPLE SMALL PULMONARY NODULES, BENIGN. BEING, SCREENED WITH LDCT ON AN ANNUAL BASIS, Code(s): R91.8 - Other nonspecific abnormal finding of lung field Plan: as above Coding Level of Care Code Est Pt Level 3 (30447) Diagnoses COPD (chronic obstructive pulmonary disease) J44.9 Smoker F17.200 Pulmonary nodules R91.8
== END 2023-12-26 16:11 | disposition home or self-care (01) ==
PROVIDERS: PCP Pediatrics; Visit Provider Internal Medicine
DX: J44.9 Chronic obstructive pulmonary disease, unspecified (principal); F17.200 Nicotine dependence, unspecified, uncomplicated; R91.8 Other nonspecific abnormal finding of lung field
CPT/HCPCS: 99213

== ENCOUNTER → 2023-12-26 15:23 | Outpatient (BNVA) | payer MEDICARE, MEDICAID, SELFPAY | PROVIDERS: PCP Pediatrics; Visit Provider Internal Medicine | DX: J44.9 Chronic obstructive pulmonary disease, unspecified (principal); R91.8 Other nonspecific abnormal finding of lung field; F17.210 Nicotine dependence, cigarettes, uncomplicated | CPT/HCPCS: 99212 ==

== ENCOUNTER 2024-02-06 08:55 | Outpatient (REF) | payer MEDICARE, MEDICAID, SELFPAY ==
--- NOTE | ~2024-02-06 | CT_ITS ---
EXAMINATION: CT CHEST SCREENING CLINICAL INFORMATION: Nicotine dependence, cigarettes, uncomplicated. COMPARISON: CT lung screening 12/16/2022. TECHNIQUE: Multidetector volumetric CT imaging of the chest was performed without contrast using low-dose technique. Additional 2D coronal and sagittal reformatted images and axial 3D maximum intensity projection (MIP) images were generated on the CT workstation. This CT examination was performed using dose optimization techniques as appropriate, variously including the following: *Automated exposure control *Adjustment of mA and/or kV according to patient size (this includes techniques or standardized protocols for targeted exams where dose is matched to indication/reason for exam; i.e. extremities or head) *Use of iterative reconstruction technique DLP: 39 mGy-cm FINDINGS: LUNGS: Moderate emphysematous changes are present. Biapical pleural-parenchymal scarring is present, right greater than left. PULMONARY NODULES: Some scattered pulmonary nodular densities are again seen and unchanged with no new or concerning finding to suggest malignancy. Montes images have been saved. For example: 3 mm left apex (5:83 compare prior 5:77). 4 mm superior segment left lower lobe (5:214 compare prior 5:202. 3 mm right lower lobe (5:218 compare prior 5:202). 4 mm subpleural right lower lobe medial (5:300 compare prior 5:282). No new or concerning nodule is seen. MEDIASTINUM: The mediastinum is normal. CORONARY ARTERY CALCIFICATION: Mild. PLEURA: There is no pleural effusion. No pleural mass or thickening. AXILLA: No lymphadenopathy. UPPER ABDOMEN: Some stable hypodensities are seen in the liver. OSSEOUS STRUCTURES: Mild degenerative changes are present in the spine. Stable sclerotic density in the T4 vertebral body. CT/CT lung screening IMPRESSION: Moderate emphysema. Unchanged benign-appearing nodules. No new or concerning finding to suggest malignancy. ASSESSMENT: Lung-RADS category 2: Benign RECOMMENDATION: Routine annual low-dose CT screening in 12 months.
== END 2024-02-06 08:56 | disposition home or self-care (01) ==
LOC: HO.CT 08:55
PROVIDERS: PCP Pediatrics; Visit Provider Nurse Practitioner Family
DX: F17.210 Nicotine dependence, cigarettes, uncomplicated (principal)
CPT/HCPCS: 71271

== ENCOUNTER 2024-07-25 11:05 | Outpatient (AMB) | payer MEDICARE, MEDICAID, SELFPAY ==
--- NOTE | 2024-07-25 11:08 | MHC.OFFVIS ---
Vital Signs 07/25/24 11:09 Height 5 ft 3 in Weight 123 lb BMI 21.8 BP 104/78 Blood Pressure Location Lt brachial Position Sitting Pulse 82 Pulse Source Pulse Oximeter Pulse Oximetry (%) 97 Oxygen Delivery Method Room Air Intake Visit Reasons: copd Intake Note: pt is here for follow up and states she does not like Incruse, just does not work for her. Spirvia handi inhaler worked best for her with no complications. 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 Allergies acetaminophen [From Percocet] Adverse Reaction (Severe, Verified 07/25/24 11:17) upset stomach oxycodone [From Percocet] Adverse Reaction (Severe, Verified 07/25/24 11:17) upset stomach Medication List - Last Reconciled 07/25/24 by Latasha Caceres MD albuterol sulfate 90 mcg/actuation (Ventolin HFA) 2 puffs inhalation Q6H PRN 30 days cholecalciferol (vitamin D3) 25 mcg PO DAILY fluticasone furoate-vilanterol 200-25 mcg/dose (Breo Ellipta) 1 ea PO DAILY multivitamin (Daily Multi-Vitamin tablet) 1 tab PO DAILY tiotropium bromide (Spiriva with HandiHaler) 1 cap inhalation DAILY 90 days umeclidinium 62.5 mcg/actuation (Incruse Ellipta) 1 inh inhalation DAILY 30 days vitamin B complex (B Complex-Vitamin B12 tablet) 1 tab PO DAILY Do you need a note to return to daycare/school/sports/work: No HPI HPI copd: Details: 63 YEARS OLD VERY PLEASANT FEMALE WITH CHRONIC OBSTRUCTIVE PULMONARY DISEASE, COMES AFTER 6 MONTHS FOR FOLLOW-UP. UNFORTUNATELY STILL SMOKING ABOUT HALF PACK OF CIGARETTES A DAY. DOES HAVE MILD INTERMITTENT COUGH MOSTLY RELATED TO SMOKING. SHE DOES GET SHORT OF BREATH WHEN SHE WALKS FAST OR CLIMBS STAIRS. OTHERWISE HAS BEEN FAIRLY STABLE. SHE USES BREO REGULARLY . ALSO USING INCRUSE ELLIPTA BUT DOES NOT TOLERATE THE TASTE . SHE TOLERATED SPIRIVA RESPIMAT THE BEST WHICH DID NOT IRRITATE HER THROAT, AND WOULD LIKE TO GO BACK TO THAT. [facility] Medical History Pulmonary nodules COPD exacerbation COVID-19 History of COVID-19 (~03/2021) History of TIA (transient ischemic attack) (~2014) Depression with anxiety History of cerebral aneurysm (~2014) Osteoporosis (~2013) Personal history of nicotine dependence COPD (chronic obstructive pulmonary disease) Surgical History History of surgery for cerebral aneurysm (~2014) History of tubal ligation (~1988) Social History Alcohol intake: current Alcohol intake frequency: holidays/special occasions only Patient Tobacco Use Status: Current everyday Tobacco user Tobacco use type: Cigarette Cigarettes Per Day: 8 Years Smoked: 42 (onset 18 - 1ppd x 20yrsn now 1/2ppd - 30pyh) Advance Directives Date on File: 08/20/20 Review of Systems Const All systems reviewed & are unremarkable except as noted in HPI and below Eyes Reports no additional complaints ENT Reports nasal congestion (Mild) and Reports neck pain (Complains of mild stiffness of the neck and pain) Card Denies chest pain, Denies irregular heart rhythm and Denies leg edema Resp Reports as per HPI GI Reports no additional complaints Reports no additional complaints Musc Reports neck pain (Complains of mild stiffness of the neck and pain) Skin/Breast Reports system reviewed and no additional complaints, except as documented Neuro Reports no additional complaints Psych Reports no additional complaints Physical Exam Vital Signs: Last Vital Signs Pulse 82 07/25/24 11:09 BP 104/78 07/25/24 11:09 Pulse Ox 97 07/25/24 11:09 Oxygen Delivery Method Room Air 07/25/24 11:09 BMI result Body Mass Index 21.8 Const General: comfortable, no acute distress, alert and awake Orientation/consciousness: patient oriented x3 HEENT Head: Yes normal to inspection General nose exam: No nasal polyps present and No nasal discharge present Face and sinus: Yes sinuses nontender Mouth: oropharynx normal Throat: Yes posterior oropharynx normal Eyes General: appearance normal, both eyes and all related structures Neck Neck: Yes normal visual inspection, Yes no lymphadenopathy, Yes trachea midline and Yes no JVD Thyroid: Thyroid normal Chest Chest palpation & inspection: normal inspection of the chest, normal palpation of entire chest wall and no tenderness Resp Other: Percussion note is resonant, breath sounds are diminished on both sides with prolonged expiratory phase. No wheezes rhonchi or crepitations are heard today. Cardio Palpation: normal PMI Rate: regular rate Rhythm: regular rhythm Heart sounds: no gallops and no murmurs Peripheral pulses: Peripheral pulses 2+ throughout GI Palpation (GI): Soft to palpation, nontender, No hepatosplenomegaly present and no masses Auscultation: normal bowel sounds Back/Spine/Pelvis Thoracic/Lumbar Spine: thoracic and lumbar spine normal to inspection Skin General skin exam: no rashes or lesions noted Neuro General: patient oriented x3 and no focal motor deficits Cranial nerves: Yes CN's II-XII intact bilaterally Extrem General: Yes normal to inspection, Yes no clubbing, cyanosis or edema and Yes no calf tenderness Psych Appearance: grossly normal and well kempt Speech and movement: Normal speech and movement present Results Reviewed Results Reviewed: 02/06/2024 LDCT CHEST IMPRESSION: Moderate emphysema. Unchanged benign-appearing nodules. No new or concerning finding to suggest malignancy. ASSESSMENT: Lung-RADS category 2: Benign RECOMMENDATION: Routine annual low-dose CT screening in 12 months. Assessment & Plan Assessment & Plan (1) Smoker: Comment: Long-time smoker, trying to quit slowly on her own. I have offered help, with counseling, use of nicotine patches, or even referral to Quit smoking program . She is doing it on her own and is still at 10 cigarettes a day . She is in ANNUAL LDCT .SCREENING PROGRAM. Code(s): F17.200 - Nicotine dependence, unspecified, uncomplicated Category: Social Hx Plan: I TALKED TO HER AGAIN TODAY ABOUT QUITTING SMOKING AND GETTING SOME HELP. SHE HAS TRIED NICOTINE GUMS OFF. AND ON WHICH DO NOT HELP SHE HAS TRIED NICOTINE PATCH IN THE PAST BUT DOES NOT WANT TO USE IT NOW. HOWEVER AFTER FULL DISCUSSION AND EXPLANATION SHE IS NOW WILLING TO TRY NICOTINE PATCH 14 MG A DAY AND I WILL SEND IN THE PRESCRIPTION. (2) COPD (chronic obstructive pulmonary disease): Comment: Moderately severe COPD, good response to bronchodilators, c/w ACOS . Has remained under control and stable. SHE IS DOING FAIRLY WELL WITH COMBINATION OF BREO AND INCRUSE ELLIPTA AT THIS TIME. DOES NOT LIKE TO USE INCRUSE ELLIPTA BECAUSE SHE SAY IS THE POWDER FORM IRRITATES HER THROAT. SHE TOLERATED SPIRIVA RESPIMAT THE BEST. AND WANTS TO GO BACK TO THAT IF POSSIBLE. Code(s): J44.9 - Chronic obstructive pulmonary disease, unspecified Category: Medical Plan: I ADVISED HER TO CONTINUE BREO 200-25 1 INHALATION DAILY WILL ORDER SPIRIVA RESPIMAT 1.25, 2 INHALATIONS DAILY ( MAY NEED PRIOR APPROVAL ) USE VENTOLIN 2 PUFFS Q 4-6 HOURS P.R.N.. (3) Pulmonary nodules: Comment: MULTIPLE SMALL PULMONARY NODULES, BENIGN. BEING, SCREENED WITH LDCT ON AN ANNUAL BASIS, Code(s): R91.8 - Other nonspecific abnormal finding of lung field Category: Medical Plan: ADVISED TO CONTINUE HAVING ANNUAL LOW-DOSE CT SCAN Medications: New tiotropium bromide 2.5 mcg/actuation (Spiriva Respimat) 2 puffs inhalation QAM 30 days 4 grams 5RF COPD nicotine 1 patch transdermal DAILY 28 days 28 ea 3RF SMOKER/COPD MDD 1 PATCH Coding Level of Care Code Est Pt Level 3 (05875) Diagnoses Smoker F17.200 COPD (chronic obstructive pulmonary disease) J44.9 Pulmonary nodules R91.8
[2024-07-25 11:09] VITALS: BP 104/78; PULSE 82; O2SAT 97; BMI 21.8
== END 2024-07-25 11:33 | disposition home or self-care (01) ==
PROVIDERS: PCP Pediatrics; Visit Provider Internal Medicine
DX: F17.200 Nicotine dependence, unspecified, uncomplicated (principal); J44.9 Chronic obstructive pulmonary disease, unspecified; R91.8 Other nonspecific abnormal finding of lung field
CPT/HCPCS: 99213

== ENCOUNTER → 2024-07-25 11:05 | Outpatient (BNVA) | payer MEDICARE, MEDICAID, SELFPAY | PROVIDERS: PCP Pediatrics; Visit Provider Internal Medicine | DX: J44.9 Chronic obstructive pulmonary disease, unspecified (principal); R91.8 Other nonspecific abnormal finding of lung field; F17.210 Nicotine dependence, cigarettes, uncomplicated | CPT/HCPCS: 99212 ==

== ENCOUNTER 2024-10-31 09:08 | Outpatient (REF) | payer MEDICARE, MEDICAID, SELFPAY | END 2024-10-31 09:09 | disposition home or self-care (01) | LOC: HO.MAMMO 09:08 | PROVIDERS: PCP Pediatrics; Visit Provider Pediatrics | DX: Z12.31 Encounter for screening mammogram for malignant neoplasm of breast (principal) | CPT/HCPCS: 77063; 77067 ==

== ENCOUNTER → 2024-10-31 09:30 | Outpatient (BNV) | payer MEDICARE, MEDICAID, SELFPAY | PROVIDERS: PCP Pediatrics; Visit Provider Internal Medicine | DX: Z12.31 Encounter for screening mammogram for malignant neoplasm of breast (principal) | CPT/HCPCS: 77063; 77067 ==

== ENCOUNTER 2025-03-13 09:19 | Outpatient (AMB) | payer MEDICARE, MEDICAID, SELFPAY ==
--- NOTE | 2025-03-13 09:25 | MHC.OFFVIS ---
Vital Signs 03/13/25 09:26 Height 5 ft 3 in Weight 124 lb 8.979 oz BMI 22.1 BP 130/80 Blood Pressure Location Lt brachial Position Sitting Pulse 79 Pulse Source Pulse Oximeter Pulse Oximetry (%) 98 Oxygen Delivery Method Room Air Intake Visit Reasons: COPD Intake Note: pt is here for follow up and states she is having some issues, allergies causing nasal congestion, and fatigue is caused by this. pt needs a 3 month supply on ventolin and spirvia respimet. Sound Ranging Crewmember Required: No Allergies acetaminophen [From Percocet] Adverse Reaction (Severe, Verified 03/13/25 09:31) upset stomach oxycodone [From Percocet] Adverse Reaction (Severe, Verified 03/13/25 09:31) upset stomach Medication List - Last Reconciled 03/13/25 by Latasha Caceres MD albuterol sulfate 90 mcg/actuation (Ventolin HFA) 2 puffs inhalation Q6H PRN 30 days cholecalciferol (vitamin D3) 25 mcg PO DAILY fluticasone furoate-vilanterol 200-25 mcg/dose (Breo Ellipta) 1 ea PO DAILY multivitamin (Daily Multi-Vitamin tablet) 1 tab PO DAILY nicotine 1 patch transdermal DAILY 28 days MDD 1 PATCH tiotropium bromide 2.5 mcg/actuation (Spiriva Respimat) 2 puffs inhalation BEDTIME vitamin B complex (B Complex-Vitamin B12 tablet) 1 tab PO DAILY Do you need a note to return to daycare/school/sports/work: No HPI HPI COPD: Details: This 64 years old very pleasant female is here for her 6 months follow-up. Overall she has been doing well but during the allergy season she is having increased cough without much expectoration. She gets short of breath on climbing stairs or walking fast, but not at normal level of activity. Still smoking about 3-4 cigarettes a day. She will be getting her annual LDCT today. She does complain of intermittent nasal congestion since the start of spring. [facility] Medical History (Updated 03/13/25 @ 09:54 by Latasha Caceres MD) Allergic rhinitis Nicotine dependence, cigarettes, uncomplicated Pulmonary nodules COPD exacerbation COVID-19 History of COVID-19 (~03/2021) History of TIA (transient ischemic attack) (~2014) Depression with anxiety History of cerebral aneurysm (~2014) Osteoporosis (~2013) COPD (chronic obstructive pulmonary disease) Surgical History History of surgery for cerebral aneurysm (~2014) History of tubal ligation (~1988) Social History Alcohol intake: current Alcohol intake frequency: holidays/special occasions only Patient Tobacco Use Status: Current everyday Tobacco user Tobacco use type: Cigarette Cigarettes Per Day: 8 Years Smoked: 42 (onset 18 - 1ppd x 20yrsn now 1/2ppd - 30pyh) Advance Directives Date on File: 08/20/20 Review of Systems Const All systems reviewed & are unremarkable except as noted in HPI and below Eyes Reports no additional complaints ENT Reports nasal congestion (Mild) and Reports neck pain (Complains of mild stiffness of the neck and pain) Card Denies chest pain, Denies irregular heart rhythm and Denies leg edema Resp Reports as per HPI GI Reports no additional complaints Reports no additional complaints Musc Reports neck pain (Complains of mild stiffness of the neck and pain) Skin/Breast Reports system reviewed and no additional complaints, except as documented Neuro Reports no additional complaints Psych Reports no additional complaints Physical Exam Vital Signs: Last Vital Signs Pulse 79 03/13/25 09:26 BP 130/80 03/13/25 09:26 Pulse Ox 98 03/13/25 09:26 Oxygen Delivery Method Room Air 03/13/25 09:26 BMI result Body Mass Index 22.1 Const General: comfortable, no acute distress, alert and awake Orientation/consciousness: patient oriented x3 HEENT Head: Yes normal to inspection General nose exam: No nasal polyps present and No nasal discharge present Face and sinus: Yes sinuses nontender Mouth: oropharynx normal Throat: Yes posterior oropharynx normal Eyes General: appearance normal, both eyes and all related structures Neck Neck: Yes normal visual inspection, Yes no lymphadenopathy, Yes trachea midline and Yes no JVD Thyroid: Thyroid normal Chest Chest palpation & inspection: normal inspection of the chest, normal palpation of entire chest wall and no tenderness Resp Other: Percussion note is resonant, breath sounds are diminished on both sides with prolonged expiratory phase. No wheezes rhonchi or crepitations are heard today. Cardio Palpation: normal PMI Rate: regular rate Rhythm: regular rhythm Heart sounds: no gallops and no murmurs Peripheral pulses: Peripheral pulses 2+ throughout GI Palpation (GI): Soft to palpation, nontender, No hepatosplenomegaly present and no masses Auscultation: normal bowel sounds Back/Spine/Pelvis Thoracic/Lumbar Spine: thoracic and lumbar spine normal to inspection Skin General skin exam: no rashes or lesions noted Neuro General: patient oriented x3 and no focal motor deficits Cranial nerves: Yes CN's II-XII intact bilaterally Extrem General: Yes normal to inspection, Yes no clubbing, cyanosis or edema and Yes no calf tenderness Psych Appearance: grossly normal and well kempt Speech and movement: Normal speech and movement present Assessment & Plan Assessment & Plan (1) COPD (chronic obstructive pulmonary disease): Comment: Moderately severe COPD, good response to bronchodilators, c/w ACOS . Has remained under control and stable. SHE IS DOING FAIRLY WELL WITH COMBINATION OF BREO AND INCRUSE ELLIPTA AT THIS TIME. DOES NOT LIKE TO USE INCRUSE ELLIPTA BECAUSE SHE SAY IS THE POWDER FORM IRRITATES HER THROAT. SHE TOLERATED SPIRIVA RESPIMAT THE BEST. Code(s): J44.9 - Chronic obstructive pulmonary disease, unspecified Category: Medical Plan: Continue using Breo Ellipta 200-251 inhalation daily , Spiriva Respimat 2.5 2 inhalations daily, and albuterol HFA Q 6 hours p.r.n. (2) Pulmonary nodules: Comment: MULTIPLE SMALL PULMONARY NODULES, BENIGN. BEING, SCREENED WITH LDCT ON AN ANNUAL BASIS, Code(s): R91.8 - Other nonspecific abnormal finding of lung field Category: Medical Plan: Continue to have annual lung scan (3) Nicotine dependence, cigarettes, uncomplicated: Comment: (onset 18yo, 1ppd mainly, now 1/2ppd - 30+PYH) currently down to 4-5 cigarettes a day, trying to cut down. Code(s): F17.210 - Nicotine dependence, cigarettes, uncomplicated Category: Medical Plan: Again counseled to quit smoking completely. Continue having annual lung scan (4) Allergic rhinitis: Comment: Mild, seasonal Code(s): J30.9 - Allergic rhinitis, unspecified Category: Medical Plan: May use OTC Claritin 10 mg or cetirizine 10 mg once a day p.r.n. Also may use Flonase-50 2 spray in each nostril daily p.r.n.. Coding Level of Care Code Est Pt Level 3 (65350) Diagnoses COPD (chronic obstructive pulmonary disease) J44.9 Pulmonary nodules R91.8 Nicotine dependence, cigarettes, uncomplicated F17.210 Allergic rhinitis J30.9
[2025-03-13 09:26] VITALS: BP 130/80; PULSE 79; O2SAT 98; BMI 22.1
== END 2025-03-13 09:46 | disposition home or self-care (01) ==
LOC: HO.HPS 09:20
PROVIDERS: PCP Pediatrics; Visit Provider Internal Medicine
DX: J44.9 Chronic obstructive pulmonary disease, unspecified (principal); R91.8 Other nonspecific abnormal finding of lung field; F17.210 Nicotine dependence, cigarettes, uncomplicated; J30.9 Allergic rhinitis, unspecified
CPT/HCPCS: 99213

== ENCOUNTER 2025-03-13 09:52 | Outpatient (REF) | payer MEDICARE, MEDICAID, SELFPAY ==
--- NOTE | ~2025-03-13 | CT_ITS ---
CLINICAL HISTORY: F17.210 - Nicotine dependence, cigarettes, uncomplicated CT lung cancer screening (LDCT) Comparison: 02/06/2024, 12/16/2022 Technique: Axial CT images of the chest using low-dose technique. Referring provider counseled the patient on shared decision-making for LDCT screening. Additional counseling was provided on smoking cessation. Effective radiation dose total: DLP 28 mGycm, CTDIvol 0.8 mGy. Findings: Lung: Moderate centrilobular emphysema. Stable 4 mm nodule of the right lower lobe series 4, image 85. Stable 4.8 mm nodule of the left lower lobe image 82. Stable 3 mm nodule of the left upper lobe image 20. Stable additional micro nodules. Coronary artery calcifications: Moderate Limited upper abdomen: Limited evaluation of the hypodensities of the liver. Severe Atherosclerosis calcification of the aorta. Other: Possible bone island of the T4. Small pericardial effusion. Impression: LungRADS 2 - Benign Appearance: Continue annual screening with low dose Chest CT in 12 months. ##L2# Category 1: Normal; continue annual screening Category 2: Benign appearance or behavior, continue annual screening Category 3: Probably benign, [address] recommended Category 4A: Suspicious, [address] recommended; may consider PET/CT Category 4B: Suspicious, Additional diagnostics and/or tissue sampling recommended Category 4X: Suspicious, Additional diagnostics and/or tissue sampling recommended Category 0: Recalls (incomplete screen due to Incomplete coverage, Noise, Respiratory motion, Expiration, Obscured by acute abnormality) This document has been electronically signed by: Eve Crawford MD on 03/13/2025 22:08:07
== END 2025-03-13 09:53 | disposition home or self-care (01) ==
LOC: HO.CT 09:52
PROVIDERS: PCP Pediatrics; Visit Provider Physician Assistant Medical
DX: Z12.2 Encounter for screening for malignant neoplasm of respiratory organs (principal); F17.210 Nicotine dependence, cigarettes, uncomplicated; J44.9 Chronic obstructive pulmonary disease, unspecified; R91.8 Other nonspecific abnormal finding of lung field; J30.9 Allergic rhinitis, unspecified
CPT/HCPCS: 71271; 99212

== ENCOUNTER → 2025-03-13 09:54 | Outpatient (BNV) | payer MEDICARE, MEDICAID, SELFPAY | PROVIDERS: PCP Pediatrics; Visit Provider Nuclear Medicine | DX: F17.210 Nicotine dependence, cigarettes, uncomplicated (principal) | CPT/HCPCS: 71271 ==

== ENCOUNTER 2025-09-11 09:21 | Outpatient (AMB) | payer MEDICARE, MEDICAID, SELFPAY ==
--- NOTE | 2025-09-11 09:26 | MHC.OFFVIS ---
Vital Signs 09/11/25 09:27 Height 5 ft 3 in Weight 130 lb BMI 23.0 BP 140/78 H Blood Pressure Location Lt brachial Position Sitting Pulse 80 Pulse Source Pulse Oximeter Pulse Oximetry (%) 97 Oxygen Delivery Method Room Air Intake Visit Reasons: COPD Intake Note: pt is here for follow up and states she is feeling that sometimes her breathing is little ruff with exertion and stairs. Breo is going off formulary and choices will be Breyna HFA, Advair HFA, Can you please send in refill for Spirvia for a 3 month supply with 3 refills. Spray Applicator Required: No Allergies acetaminophen (From Percocet) Adverse Reaction (Severe, Verified 09/11/25 09:38) upset stomach oxycodone (From Percocet) Adverse Reaction (Severe, Verified 09/11/25 09:38) upset stomach Medication List - Last Reconciled 09/11/25 by Latasha Caceres MD albuterol sulfate 90 mcg/actuation (Ventolin HFA) 2 puffs inhalation Q6H PRN 30 days cholecalciferol (vitamin D3) 25 mcg PO DAILY ergocalciferol (vitamin D2) 1,250 mcg PO QWEEK fluticasone furoate-vilanterol 200-25 mcg/dose (Breo Ellipta) 1 inh PO DAILY tiotropium bromide 2.5 mcg/actuation (Spiriva Respimat) 2 puffs PO BEDTIME Do you need a note to return to daycare/school/sports/work: No HPI HPI COPD: Details: 64 years old very pleasant female, is here for 6 months follow-up. She is being followed for COPD, moderately severe. In spite of using Breo and Spiriva Respimat regularly every day she still has intermittent cough with some wheezing. She can walk around at level ground but going up stairs makes her short of breath Continues to smoke half pack a day. Luckily she has had no acute exacerbation in the last 6 months. [facility] Medical History Allergic rhinitis Nicotine dependence, cigarettes, uncomplicated Pulmonary nodules COPD exacerbation COVID-19 History of COVID-19 (~03/2021) History of TIA (transient ischemic attack) (~2014) Depression with anxiety History of cerebral aneurysm (~2014) Osteoporosis (~2013) COPD (chronic obstructive pulmonary disease) Surgical History History of surgery for cerebral aneurysm (~2014) History of tubal ligation (~1988) Social History Alcohol intake: current Alcohol intake frequency: holidays/special occasions only Patient Tobacco Use Status: Current everyday Tobacco user Tobacco use type: Cigarette Cigarettes Per Day: 12 Years Smoked: 42 (onset 18 - 1ppd x 20yrsn now 1/2ppd - 30pyh) Advance Directives Date on File: 08/20/20 Review of Systems Const All systems reviewed & are unremarkable except as noted in HPI and below Eyes Reports no additional complaints ENT Reports nasal congestion (Mild) and Reports neck pain (Complains of mild stiffness of the neck and pain) Card Denies chest pain, Denies irregular heart rhythm and Denies leg edema Resp Reports as per HPI GI Reports no additional complaints Reports no additional complaints Musc Reports neck pain (Complains of mild stiffness of the neck and pain) Skin/Breast Reports system reviewed and no additional complaints, except as documented Neuro Reports no additional complaints Psych Reports no additional complaints Physical Exam Vital Signs: Last Vital Signs Pulse 80 09/11/25 09:27 BP 140/78 H 09/11/25 09:27 Pulse Ox 97 09/11/25 09:27 Oxygen Delivery Method Room Air 09/11/25 09:27 BMI result Body Mass Index 23.0 Const General: comfortable, no acute distress, alert and awake Orientation/consciousness: patient oriented x3 HEENT Head: Yes normal to inspection General nose exam: No nasal polyps present and No nasal discharge present Face and sinus: Yes sinuses nontender Mouth: oropharynx normal Throat: Yes posterior oropharynx normal Eyes General: appearance normal, both eyes and all related structures Neck Neck: Yes normal visual inspection, Yes no lymphadenopathy, Yes trachea midline and Yes no JVD Thyroid: Thyroid normal Chest Chest palpation & inspection: normal inspection of the chest, normal palpation of entire chest wall and no tenderness Resp Other: Percussion note is resonant, breath sounds are diminished on both sides with prolonged expiratory phase. No wheezes rhonchi or crepitations are heard today. Cardio Palpation: normal PMI Rate: regular rate Rhythm: regular rhythm Heart sounds: no gallops and no murmurs Peripheral pulses: Peripheral pulses 2+ throughout GI Palpation (GI): Soft to palpation, nontender, No hepatosplenomegaly present and no masses Auscultation: normal bowel sounds Back/Spine/Pelvis Thoracic/Lumbar Spine: thoracic and lumbar spine normal to inspection Skin General skin exam: no rashes or lesions noted Neuro General: patient oriented x3 and no focal motor deficits Cranial nerves: Yes CN's II-XII intact bilaterally Extrem General: Yes normal to inspection, Yes no clubbing, cyanosis or edema and Yes no calf tenderness Psych Appearance: grossly normal and well kempt Speech and movement: Normal speech and movement present Office Procedures Spirometry Testing Spirometry Comments: SIROMETRY DONE 15315- Spirometry Results Reviewed Results Reviewed: LDCT LUNGS IN MARCH 08 CATEGORY 2 BENIGN SPIROMETRY : FVC FEV1 FEV1/FVC FEF 25-75 07/14/21 71 53 57 25 09/11/25 89 51 45 16 Assessment & Plan Assessment & Plan (1) COPD (chronic obstructive pulmonary disease): Comment: Moderately severe COPD, good response to bronchodilators, c/w ACOS . Has remained under control and stable. SHE IS DOING FAIRLY WELL WITH COMBINATION OF BREO AND SPIRIVA RESPIMAT AT THIS TIME. Code(s): J44.9 - Chronic obstructive pulmonary disease, unspecified Category: Medical Plan: ADVISED TO CONTINUE THE PRESENT REGIMEN. BREO ELLIPTA 200-251 INHALATION DAILY SPIRIVA RESPIMAT 2.5 MY PER ACTUATION 2 INHALATIONS DAILY VENTOLIN HFA 2 PUFFS Q 4-6 HOURS P.R.N. (2) Nicotine dependence, cigarettes, uncomplicated: Comment: (onset 18yo, 1ppd mainly, now 1/2ppd - 30+PYH) currently still smoking 10 cigarette a day Code(s): F17.210 - Nicotine dependence, cigarettes, uncomplicated Category: Medical Plan: Had a good discussion with her and I told her that he needs to quit completely or at least cut down the number of cigarettes to 5 a day (3) Pulmonary nodules: Comment: MULTIPLE SMALL PULMONARY NODULES, BENIGN. BEING, SCREENED WITH LDCT ON AN ANNUAL BASIS, Code(s): R91.8 - Other nonspecific abnormal finding of lung field Category: Medical Plan: Continue annual lung screening . (4) Allergic rhinitis: Comment: Mild, seasonal Code(s): J30.9 - Allergic rhinitis, unspecified Category: Medical Plan: Does not need any specific treatment at this time Orders: Orders AMB Spirometry Testing Today Latosha Thomas, RT J44.9 - Chronic obstructive pulmonary disease, unspecified Medications: New fluticasone propion-salmeterol 250-50 mcg/dose (Advair Diskus) 1 inh inhalation BID 60 ea 3RF copd 90 days Latasha Caceres MD Changed From tiotropium bromide 2.5 mcg/actuation (Spiriva Respimat) 2 puffs PO BEDTIME 4 mL 0RF To tiotropium bromide 2.5 mcg/actuation (Spiriva Respimat) 2 puffs PO BEDTIME 12 grams 3RF copd 90 days Latasha Caceres MD Coding Level of Care Code Est Pt Level 3 (00771) Diagnoses COPD (chronic obstructive pulmonary disease) J44.9 Nicotine dependence, cigarettes, uncomplicated F17.210 Pulmonary nodules R91.8 Allergic rhinitis J30.9 CPT Codes Spirometry - CPT: 21155- Spirometry ([id number])
[2025-09-11 09:27] VITALS: BP 140/78; PULSE 80; O2SAT 97; BMI 23.0
--- OUTSIDE RECORDS SUMMARY | 2025-09-11 10:48 | XMS_ITS | Encounter Summary ---
Author Organization [facility] Address [address] [place] [phone] Phone Care Team Providers Care Dry Press Operator Helper Name Role Phone Thuy Rivera MD Primary Care Provider Encounter Details Date Type Department Care Team (Latest Contact Info) Description 05/21/2019 Transcribe Orders [facility] [address] [place] [id number] Thuy Rivera MD [address] [place] [id number] Senile osteoporosis (Primary Dx) Social History Tobacco Use Types Packs/Day Years Used Date Smoking Tobacco: Never Assessed Comments Unknown Sex and Gender Information Value Date Recorded Sex Assigned at Not on file Legal Sex Female 9:44 AM EDT Gender Identity Not on file Sexual Orientation Not on file documented as of this encounter Plan of Treatment Not on file documented as of this encounter Results * (ABNORMAL) Lipid panel (05/21/2019 8:09 AM EDT) HDL 59 mg/dL [facility] Comment: Interpretation <40 mg/dL: Low HDL cholesterol (major risk factor for CHD) Greater than or equal to 60 mg/dL: High HDL cholesterol ( negative risk factor for CHD) HDL - cholesterol is affected by a number of factors, e.g. smoking, excerise, hormones, sex and age. CHOLESTEROL 190 0 - 240 mg/dL [facility] TRIGLYCERIDES 60 30 - 160 mg/dL [facility] LDL 119 50 - 129 mg/dL [facility] Comment: LDL levels in terms of risk for coronary heart disease: <100 mg/dL: Optimal 100-129 mg/dL: Near or above optimal 130-159 mg/dL: Borderline high 160-189 mg/dL: High >190 mg/dL: Very High CARDIAC RISK RATIO 3.2(L) 3.3 - 4.4 C [facility] Blood 05/21/2019 8:09 AM EDT 05/21/2019 10:23 AM EDT us Thuy Rivera MD LAB BLOOD ORDERABLES Final Re sult Performing Organization Address City/[facility]/ZIP Co de Phone Number [address] [phone] * LFTs (hepatic panel) (05/21/2019 8:09 AM EDT) ALKALINE PHOSPHATASE 74 39 - 117 U/L [facility] TOTAL BILIRUBIN 0.3 0.0 - 1.2 mg/dL [facility] DIRECT BILIRUBIN <0.2 0 - 0.3 mg/dL [facility] Bilirubin (Indirect) NOT CALCULATED 0 - 1.5 mg/dL [facility] AST 21 0 - 37 U/L [facility] ALT 11 0 - 40 U/L [facility] TOTAL PROTEIN 6.8 6.5 - 8.0 g/dL [facility] ALBUMIN 4.0 3.9 - 4.8 g/dL [facility] GLOBULIN 2.8 1 - 4.8 g/dL [facility] A/G Ratio 1.43 1.00 - 4.80 RATIO [facility] Blood 05/21/2019 8:09 AM EDT 05/21/2019 10:23 AM EDT us Thuy Rivera MD LAB BLOOD ORDERABLES Final Re sult Performing Organization Address [facility]/ZIP Co de Phone Number [address] [address] * (ABNORMAL) 25-OH vitamin D (05/21/2019 8:09 AM EDT) 25 OH VIT D (TOTAL) 28(L) 30 - 60 ng/mL [facility] Blood 05/21/2019 8:09 AM EDT 05/21/2019 10:23 AM EDT us Thuy Rivera MD LAB BLOOD ORDERABLES Final Re sult Performing Organization Address City/[facility]/ZIP Co de Phone Number [address] [phone] * TSH (05/21/2019 8:09 AM EDT) TSH 1.98 0.27 - 4.20 uIU/mL [facility] Blood 05/21/2019 8:09 AM EDT 05/21/2019 10:23 AM EDT us Thuy Rivera MD LAB BLOOD ORDERABLES Final Re sult Performing Organization Address [facility] Co de Phone Number [address] [phone] * Basic metabolic panel (05/21/2019 8:09 AM EDT) SODIUM 145 133 - 146 mmol/L [facility] CHLORIDE 106 96 - 108 mmol/L [facility] POTASSIUM 5.0 3.3 - 5.1 mmol/L [facility] CO2 27 21 - 35 mmol/L [facility] BUN 16 6 - 19 mg/dL [facility] CREATININE 0.70 0.5 - 1.5 mg/dL [facility] GLUCOSE 85 70 - 99 mg/dL [facility] CALCIUM 9.2 8.4 - 10.3 mg/dL [facility] EGFR 96 >59 mL/min/1.7 3m2 [facility] Comment:If patient is black, multiply result by 1.159. Estimated glomerular filtration rate calculated using the CKD-EPI equation. ANION GAP 17 10 - 20 mmol/L [facility] Blood 05/21/2019 8:09 AM EDT 05/21/2019 10:23 AM EDT us Thuy Rivera MD LAB BLOOD ORDERABLES Final Re sult [facility] [address] [place] [address] * (ABNORMAL) CBC and differential (05/21/2019 8:09 AM EDT) WBC 9.49 3.40 - 11.20 K/uL [facility] RBC 4.55 3.80 - 4.80 M/uL [facility] HGB 13.6 12.0 - 15.0 g/dL [facility] HCT 40.9 36.0 - 46.0 % [facility] PLT 315 130 - 400 K/uL [facility] MCV 89.9 79.0 - 98.0 fL [facility] MCH 29.9 27.0 - 34.8 pg [facility] MCHC 33.3 31.5 - 36.0 g/dL [facility] RDW 13.2 10.8 - 14.6 % [facility] MPV 9.3(L) 9.4 - 12.4 fl [facility] NRBC 0.00 0.00 /100 WBCs [facility] ABSOLUTE NRBC 0.00 0.00 K/uL [facility] DIFF METHOD Manual [facility] NEUTS 47.0 45.30 - 77.70 % [facility] LYMPHS 45.0(H) 12.30 - 39.70 % [facility] Comment:Few atypical Lymphs seen. MONOS 6.0 4.10 - 12.80 % [facility] EOS 2.0 0 - 7.2 % [facility] ABSOLUTE NEUTS 4.46 1.40 - 7.70 K/uL [facility] ABSOLUTE LYMPHS 4.27(H) 0.60 - 3.20 K/uL [facility] ABSOLUTE MONOS 0.57 0.11 - 0.59 K/uL [facility] ABSOLUTE EOS 0.19 0.01 - 0.50 K/uL [facility] Blood 05/21/2019 8:09 AM EDT 05/21/2019 10:23 AM EDT us Thuy Rivera MD LAB BLOOD ORDERABLES Final Re sult [address] [address] * Vitamin B12 (05/21/2019 8:09 AM EDT) VITAMIN B12 1,165 232 - 1,245 pg/mL [facility] Blood 05/21/2019 8:09 AM EDT 05/21/2019 10:23 AM EDT us Thuy Rivera MD LAB BLOOD ORDERABLES Final Re sult Performing Organization Address [facility]/ZIP Co de Phone Number [address] [phone] documented in this encounter Visit Diagnoses Diagnosis Senile osteoporosis- Primary documented in this encounter Additional Health Concerns Infection Onset Date Last Indicated Resolved Time CoV-Risk 11/24/2021 11/24/2021 11/25/2021 11:1 4 PM EST COVID-19 11/24/2021 11/24/2021 12/15/2021 1:23 AM EST CoV-Risk 10/26/2022 10/26/2022 11/06/2022 1:24 AM EST documented as of this encounter Care Teams Dry Press Operator Helper Relationship Specialty Start Date End Date Thuy Rivera MD [address] [place] [address] PCP - General Pediatrics 06/03/15 documented as of this encounter Additional Source Comments The information contained in this document represents components of the legal health record. It is not the complete legal health record.[facility]
--- OUTSIDE RECORDS SUMMARY | 2025-09-11 10:48 | XMS_ITS | Clinical Summary ---
Author Organization [facility] Address [address] [address] Phone Care Team Providers Care Business Applications Specialist Name Role Phone Thuy Rivera MD Primary Care Provider [phone] Allergies Active Allergy Reactions Criticality Noted Date Comments Codeine Nausea And Vomiting 06/10/2014 Morphine Nausea And Vomiting 06/10/2014 Percocet (Oxycodone-Acetaminophen) Nausea And Vomiting 06/10/2014 Percodan (Oxycodone Svo-Ugvfrixnm-Agm) Nausea And Vomiting 06/10/2014 Medications VENTOLIN HFA 90 mcg/actuation inhaler 1 Active FLOVENT HFA 220 mcg/actuation inhaler 1 Active SPIRIVA WITH HANDIHALER 18 mcg inhalation capsule 1 Active naproxen (NAPROSYN) 500 MG tablet Take 1 tablet (500 mg total) by mouth 2 (two) times a day for 3 days. Then twice daily as needed for pain, inflammation 20 tablet 2 Active diclofenac sodium (VOLTAREN) 1 % Gel Use topical BID 5 Active ibuprofen (ADVIL,MOTRIN) 800 MG tablet Take 800 mg by mouth 3 (three) times a day. 5 Active doxycycline monohydrate (MONODOX) 100 MG capsule Take 1 capsule (100 mg total) by mouth 2 (two) times a day. 2 capsule 5 Active Active Problems Problem Noted Date Diagnosed Date Forgetfulness 02/13/2019 Chronic obstructive lung disease 12/28/2016 Postmenopausal osteoporosis 06/21/2014 Cerebral aneurysm, nonruptured 03/31/2012 Anxiety state 02/24/2012 Depressive disorder 02/24/2012 Tobacco use disorder, continuous 02/24/2012 Encounters Date Type Department Care Team Description 07/29/2025 8:33 AM EDT - 07/29/2025 11:59 PM EDT Hospital Encounter [address] [address] Thuy Rivera MD Discharge Disposition: Home or Self Care 07/29/2025 Transcribe Orders [address] [address] Thuy Rivera MD Breast cancer screening by mammogram (Primary Dx); Age-related osteoporosis without current pathological fracture; Screen for colon cancer; Well adolescent visit 06/21/2025 4:40 PM EDT Office Visit [facility] [address] [address] Elizabeth Rivas CNP Tick bite of right upper arm, initial encounter (Primary Dx) from Last 3 Months Immunizations Immunization Administration Dates Next Due Influenza Quadrivalent Preservative Free IM 02/2021,11/20/2020 Influenza Quadrivalent w/ Preservative IM 2019,10/26/2018,09/10/2016 Tdap 12/09/2015 Social History Tobacco Use Types Packs/Day Years Used Date Smoking Tobacco: Every Day Smokeless Tobacco: Never Tobacco Cessation:Ready to Q uit: Not Asked; Counseling Given: Not Answered Education Answer Date Recorded Are you interested in more education? Not on torey e 03/11/2023 Are you concerned about learning? Not on file 03/11/2023 No 03/11/2023 No 03/11/2023 Digital Access Answer Date Recorded No 04/11/2023 No 04/11/2023 Reliable internet access at home? Not on file 04/11/2023 Device with a working camera? Not on file Comments Unknown Sex and Gender Information Value Date Recorded Sex Assigned at Not on file Legal Sex Female 9:44 AM EDT Gender Identity Not on file Sexual Orientation Not on file Last Filed Vital Signs Vital Sign Reading Time Taken Comments Blood Pressure 128/85 06/21/2025 4:41 PM EDT Pulse 83 06/21/2025 4:41 PM EDT Temperature 36.8 C (98.2 F) 06/21/2025 4:41 PM EDT Respiratory Rate 18 06/21/2025 4:41 PM EDT Oxygen Saturation 97% 06/21/2025 4:41 PM EDT Inhaled Oxygen Concentration - - Weight 59.9 kg (132 lb) 10/26/2022 2:28 PM EST p er pt Height 147.3 cm (4' 10 ) 06/10/2014 3:26 PM EDT Body Mass Index 27.59 06/10/2014 3:26 PM EDT Plan of Treatment Health Maintenance Due Date Last Done Comments DEPRESSION SCREENING 1973 SMOKING Hx and SMOKELESS TOBACCO SCREENING 1974 HEPATITIS C SCREENING 1979 HIV ONE-TIME SCREENING (18-65 YEARS) 1979 PNEUMOCOCCAL VACCINES (50+ years) (1 of 2 - PCV) 1980 PAP SMEAR 1982 COLOGUARD 2006 COLONOSCOPY 2006 COLORECTAL CANCER SCREENING 2006 FIT TEST 2006 FOBT 2006 SIGMOIDOSCOPY 2006 VIRTUAL COLONOSCOPY 2006 RSV VACCINE (1 - Risk 50-74 years 1-dose series) 2011 ZOSTER VACCINES (1 of 2) 2011 INFLUENZA VACCINE (#1) 2025 , 11/20/2020, 11/22/2019, Additional history exists COVID-19 VACCINE ( season) 2025 12/05/2021, 01/13/2021, 12/23/2020 MAMMOGRAM 10/07/2025 10/07/2023, 1001/2019, 07/19/2018 Adult Td,Tdap Booster 12/09/2025 12/09/2015 SCREENING FOR DIABETES 07/29/2028 07/29/2025 LIPID PANEL 07/29/2030 07/29/2025, 04/14, 05/21/2019 HEPATITIS A VACCINES Aged Out No long er eligible based on patient's age to complete this topic HIB VACCINES Aged Out No longer eligi ble based on patient's age to complete this topic MENINGOCOCCAL VACCINES (ACWY) Aged Out No longer eligible based on patient's age to complete this topic MENINGOCOCCAL VACCINES (B) Aged Out N o longer eligible based on patient's age to complete this topic Medical Devices Not on file Procedures Procedure Name Priority Date/Time Associated Diagnosis Comments BASIC METABOLIC PANEL Routine 07/29/2025 8:36 AM EDT Breast cancer screening by mammogram Age-related osteoporosis without current pathological fracture Screen for colon cancer Well adolescent visit LIPID PANEL Routine 07/29/2025 8:36 AM EDT Breast cancer screening by mammogram Age-related osteoporosis without current pathological fracture Screen for colon cancer Well adolescent visit TSH WITH REFLEX Routine 07/29/2025 8:36 AM EDT Breast cancer screening by mammogram Age-related osteoporosis without current pathological fracture Screen for colon cancer Well adolescent visit FREE T4 Routine 07/29/2025 8:36 AM EDT Breast cancer screening by mammogram Age-related osteoporosis without current pathological fracture Screen for colon cancer Well adolescent visit 25-OH VITAMIN D Routine 07/29/2025 8:36 AM EDT Breast cancer screening by mammogram Age-related osteoporosis without current pathological fracture Screen for colon cancer Well adolescent visit VITAMIN B12 Routine 07/29/2025 8:36 AM EDT Breast cancer screening by mammogram Age-related osteoporosis without current pathological fracture Screen for colon cancer Well adolescent visit LFTS (HEPATIC PANEL) Routine 07/29/2025 8:36 AM EDT Breast cancer screening by mammogram Age-related osteoporosis without current pathological fracture Screen for colon cancer Well adolescent visit CBC AND DIFFERENTIAL Routine 07/29/2025 8:36 AM EDT Breast cancer screening by mammogram Age-related osteoporosis without current pathological fracture Screen for colon cancer Well adolescent visit from Last 3 Months Results * TSH with reflex (07/29/2025 8:36 AM EDT) TSH 1.28 0.27 - 4.20 uIU/mL [facility] Blood 07/29/2025 8:36 AM EDT 07/29/2025 8:42 AM EDT us Thuy Rivera MD LAB BLOOD ORDERABLES Final Re sult Performing Organization Address [facility]/ZIP Co de Phone Number [address] [address] * LFTs (hepatic panel) (07/29/2025 8:36 AM EDT) ALKALINE PHOSPHATASE 89 39 - 117 U/L [facility] TOTAL BILIRUBIN 0.4 0.0 - 1.2 mg/dL [facility] DIRECT BILIRUBIN 0.1 0.0 - 0.2 mg/dL [facility] Bilirubin (Indirect) NOT CALCULATED 0 - 1.5 mg/dL [facility] AST 18 0 - 37 U/L [facility] ALT 7 0 - 40 U/L [facility] TOTAL PROTEIN 6.9 6.5 - 8.0 g/dL [facility] ALBUMIN 4.3 3.9 - 4.8 g/dL [facility] GLOBULIN 2.6 1 - 4.8 g/dL [facility] A/G Ratio 1.65 1.00 - 4.80 RATIO [facility] Blood 07/29/2025 8:36 AM EDT 07/29/2025 8:42 AM EDT us Thuy Rivera MD LAB BLOOD ORDERABLES Final Re sult [address] [address] * (ABNORMAL) 25-OH vitamin D (07/29/2025 8:36 AM EDT) 25 OH VIT D (TOTAL) 25(L) 30 - 60 ng/mL [facility] Blood 07/29/2025 8:36 AM EDT 07/29/2025 8:42 AM EDT us Thuy Rivera MD LAB BLOOD ORDERABLES Final Re sult [facility] [address] [place] [address] * CBC and differential (07/29/2025 8:36 AM EDT) WBC 8.83 4.00 - 11.00 K/uL [facility] RBC 4.69 4.00 - 5.20 M/uL [facility] HGB 13.8 12.0 - 16.0 g/dL [facility] HCT 41.8 36.0 - 46.0 % [facility] PLT 339 150 - 450 K/uL [facility] MCV 89.1 80.0 - 100.0 fL [facility] MCH 29.4 27.0 - 31.0 pg [facility] MCHC 33.0 32.0 - 36.0 g/dL [facility] RDW 13.3 11.5 - 14.5 % [facility] MPV 9.1 8.4 - 12.0 fL [facility] NRBC 0.00 0.00 /100 WBCs [facility] ABSOLUTE NRBC 0.00 0.00 K/uL [facility] DIFF METHOD Auto [facility] NEUTS 51.1 48.0 - 76.0 % [facility] LYMPHS 38.8 18.0 - 41.0 % [facility] MONOS 6.8 4.0 - 11.0 % [facility] EOS 2.3 0.0 - 5.0 % [facility] BASOS 0.8 0.0 - 1.5 % [facility] Granulocytes, immature (%) 0.2 0.0 - 0.9 % [facility] ABSOLUTE NEUTS 4.51 1.92 - 7.60 K/uL [facility] ABSOLUTE LYMPHS 3.43 0.72 - 4.10 K/uL [facility] ABSOLUTE MONOS 0.60 0.16 - 1.10 K/uL [facility] ABSOLUTE EOS 0.20 0.00 - 0.50 K/uL [facility] ABSOLUTE BASOS 0.07 0.00 - 0.15 K/uL [facility] Granulocytes, immature 0.02 0.00 - 0.09 K/uL [facility] Blood 07/29/2025 8:36 AM EDT 07/29/2025 8:42 AM EDT us Thuy Rivera MD LAB BLOOD ORDERABLES Final Re sult Performing Organization Address [facility] Co de Phone Number [address] [address] * Free T4 (07/29/2025 8:36 AM EDT) FREE T4 1.2 0.9 - 1.7 ng/dL [facility] Blood 07/29/2025 8:36 AM EDT 07/29/2025 8:42 AM EDT us Thuy Rivera MD LAB BLOOD ORDERABLES Final Re sult Performing Organization Address [facility] de Phone Number [address] [address] * Vitamin B12 (07/29/2025 8:36 AM EDT) VITAMIN B12 470 232 - 1,245 pg/mL [facility] Blood 07/29/2025 8:36 AM EDT 07/29/2025 8:42 AM EDT us Thuy Rivera MD LAB BLOOD ORDERABLES Final Re sult Performing Organization Address [facility] de Phone Number [address] [address] * (ABNORMAL) Lipid panel (07/29/2025 8:36 AM EDT) HDL 52 mg/dL [facility] Comment: Interpretation <40 mg/dL: Low HDL cholesterol (major risk factor for CHD) Greater than or equal to 60 mg/dL: High HDL cholesterol ( negative risk factor for CHD) HDL - cholesterol is affected by a number of factors, e.g. smoking, excerise, hormones, sex and age. CHOLESTEROL 209 0 - 240 mg/dL [facility] TRIGLYCERIDES 89 30 - 160 mg/dL [facility] LDL 139(H) 50 - 129 mg/dL [facility] Comment: LDL levels in terms of risk for coronary heart disease: <100 mg/dL: Optimal 100-129 mg/dL: Near or above optimal 130-159 mg/dL: Borderline high 160-189 mg/dL: High >190 mg/dL: Very High CARDIAC RISK RATIO 4.0 3.3 - 4.4 C [facility] Blood 07/29/2025 8:36 AM EDT 07/29/2025 8:42 AM EDT us Thuy Rivera MD LAB BLOOD ORDERABLES Final Re sult Performing Organization Address [facility]/ZIP Co de Phone Number [address] [address] * (ABNORMAL) Basic metabolic panel (07/29/2025 8:36 AM EDT) SODIUM 143 133 - 146 mmol/L [facility] CHLORIDE 109(H) 96 - 108 mmol/L [facility] POTASSIUM 4.4 3.3 - 5.1 mmol/L [facility] CO2 25 21 - 35 mmol/L [facility] BUN 18 6 - 19 mg/dL [facility] CREATININE 0.70 0.5 - 1.5 mg/dL [facility] GLUCOSE 91 70 - 99 mg/dL [facility] CALCIUM 9.1 8.4 - 10.3 mg/dL [facility] EGFR 97 >59 mL/min/1.7 3m2 [facility] Comment:Estimated glomerular filtration rate calculated using the CKD-EPI refit equation. ANION GAP 13 10 - 20 mmol/L [facility] Blood 07/29/2025 8:36 AM EDT 07/29/2025 8:42 AM EDT us Thuy Rivera MD LAB BLOOD ORDERABLES Final Re sult Performing Organization Address City/[facility]/ZIP Co de Phone Number [address] [address] from Last 3 Months Insurance [place] & B [facility] MEDICARE PART A & B Care Teams Business Applications Specialist Relationship Specialty Start Date End Date Thuy Rivera MD [address] [place] [phone] PCP - General Pediatrics 06/03/15 Additional Source Comments The information contained in this document represents components of the legal health record. It is not the complete legal health record.[facility]
--- OUTSIDE RECORDS SUMMARY | 2025-09-11 10:48 | XMS_ITS | Encounter Summary ---
Author Organization [facility] Address [address] [facility] [address] [place] [address] Phone Care Team Providers Care Animal Care Giver Name Role Phone Thuy Rivera MD Primary Care Provider [phone] Encounter Details Date Type Department Care Team (Late st Contact Info) Description 09/05/2015 Transcribe Orders [facility] [address] [place] [address] Mikey Braxton [address] [place] [phone] [email or web address] Social History Tobacco Use Types Packs/Day Years Used Date Smoking Tobacco: Never Assessed Comments Unknown Sex and Gender Information Value Date Recorded Sex Assigned at Not on file Legal Sex Female 9:44 AM EDT Gender Identity Not on file Sexual Orientation Not on file documented as of this encounter Plan of Treatment Not on file documented as of this encounter Results * MRI NeuroVascular Outside (No Interpretation) (09/10/2015 2:00 PM EDT) Narrative [facility] - 09/10/2015 1:55 PM EDT This study is for PACS storage only and not for interpretation. us Claire Hilliard MD, PhD IMG OUTSIDE IMAGING W/OUT INTERP RETATION Final Result [facility] * MRI NeuroVascular Outside (No Interpretation) (09/05/2015 7:58 AM EDT) Narrative [facility] - 09/05/2015 7:58 AM EDT This study is for PACS storage only and not for interpretation. us Claire Hilliard MD, PhD IMG OUTSIDE IMAGING W/OUT INTERP RETATION Final Result [facility] documented in this encounter Visit Diagnoses Not on filedocumented in this encounter Additional Health Concerns Infection Onset Date Last Indicated Resolved Time CoV-Risk 11/24/2021 11/24/2021 11/25/2021 11:1 4 PM EST COVID-19 11/24/2021 11/24/2021 12/15/2021 1:23 AM EST CoV-Risk 10/26/2022 10/26/2022 11/06/2022 1:24 AM EST documented as of this encounter Care Teams Animal Care Giver Relationship Specialty Start Date End Date Thuy Rivera MD [address] [place] [address] PCP - General Pediatrics 06/03/15 documented as of this encounter Additional Source Comments The information contained in this document represents components of the legal health record. It is not the complete legal health record.[facility]
== END 2025-09-11 10:08 | disposition home or self-care (01) ==
LOC: HO.HPS 09:21
PROVIDERS: PCP Pediatrics; Visit Provider Internal Medicine
DX: J44.9 Chronic obstructive pulmonary disease, unspecified (principal); F17.210 Nicotine dependence, cigarettes, uncomplicated; R91.8 Other nonspecific abnormal finding of lung field; J30.9 Allergic rhinitis, unspecified
CPT/HCPCS: 94010; 99213

== ENCOUNTER → 2025-09-11 09:21 | Outpatient (BNVA) | payer MEDICARE, MEDICAID, SELFPAY | PROVIDERS: PCP Pediatrics; Visit Provider Internal Medicine | DX: J44.9 Chronic obstructive pulmonary disease, unspecified (principal); F17.210 Nicotine dependence, cigarettes, uncomplicated; R91.8 Other nonspecific abnormal finding of lung field; J30.9 Allergic rhinitis, unspecified | CPT/HCPCS: 94010; 99212 ==

== ENCOUNTER 2025-11-11 16:31 | Outpatient (REF) | payer MEDICARE, MEDICAID, SELFPAY ==
--- OUTSIDE RECORDS SUMMARY | 2025-11-02 10:12 | XMS_ITS | Encounter Summary ---
Author Organization [facility] Address [address] [place] [address] [place] [phone] Phone Care Team Providers Care Envelope Cutter Name Role Phone Thuy Rivera MD Primary Care Provider [phone] Encounter Details Date Type Department Care Team (Late st Contact Info) Description 11/02/2025 10:12 AM EST Hospital Encounter [facility] [address] [place] [phone] Soni Patton FNP [address] [place] [phone] [email or web address] Social History Tobacco Use Types Packs/Day Years Used Date Smoking Tobacco: Every Day Smokeless Tobacco: Never Education Answer Date Recorded Are you interested [...] on file documented as of this encounter Procedures Procedure Name Priority Date/Time Associated Diagnosis Comments XR CHEST PA AND LATERAL 2 VIEWS Urgent/patient waiting 11/02/2025 10:16 AM EST Viral upper respiratory tract infection with cough documented in this encounter Results * XR CHEST PA AND LATERAL 2 VIEWS (11/02/2025 10:16 AM EST) Anatomical Region Laterality Modality Chest Computed Radiogr aphy 11/02/2025 10:4 5 AM EST Impressions 11/02/2025 10:46 AM EST No focal consolidation or overt pulmonary edema. Narrative 11/02/2025 10:46 AM EST XR CHEST PA AND LATERAL 2 VIEWS Referring clinician's provided indication for this examination in [facility]: Cough; cough, increase copd , uri, hx copd COMPARISON: None. FINDINGS: Devices/Tubes/Lines: None. Lungs: No focal consolidation or pulmonary edema. Pleura: No pleural effusion or pneumothorax. Heart/Mediastinum: Normal heart and mediastinum. Bones/Soft Tissues: No acute abnormality. Procedure Note Norman Winston MD - 11/02/2025 XR CHEST PA AND LATERAL 2 VIEWS Referring clinician's provided indication for this examination in Epic:Cough; cough, increase copd , uri, hx copd COMPARISON: None. FINDINGS: Devices/Tubes/Lines: None. Lungs: No focal consolidation or pulmonary edema. Pleura: No pleural effusion or pneumothorax. Heart/Mediastinum: Normal heart and mediastinum. Bones/Soft Tissues: No acute abnormality. IMPRESSION: No focal consolidation or overt pulmonary edema. Soni Patton BUILDING EQUIPMENT INSPECTOR IMG XR CHEST Final Resul t documented in this encounter Visit Diagnoses Not on filedocumented in this encounter Additional Health Concerns Infection Onset Date Last Indicated Resolved Time Resp-Risk 11/02/2025 11/02/2025 documented as of this encounter Care Teams Envelope Cutter Relationship Specialty Start Date End Date Thuy Rviera MD [address] [place] [address] PCP - General Pediatrics 06/03/15 documented as of this encounter Additional Source Comments The information contained in this document represents components of the legal health record. It is not the complete legal health record.[facility]
--- OUTSIDE RECORDS SUMMARY | 2025-11-11 18:01 | XMS_ITS | Encounter Summary ---
Author Organization [facility] Address [address] [place] [address] Phone Care Team Providers Care Supervisor Printing Shop Name Role Phone Thuy Rivera MD Primary Care Provider [phone] Encounter Details Date Type Department Care Team (Late st Contact Info) Description 09/05/2015 Transcribe Orders [facility] [address] [place] [address] Mikey Braxton [address] [place] [phone] [email or web address] Social History Tobacco Use Types Packs/Day Years [...] (No Interpretation) (09/10/2015 2:00 PM EDT) Narrative [facility] - 09/10/2015 1:55 PM EDT This study is for PACS storage only and not for interpretation. Claire Hilliard MD, PhD IMG OUTSIDE IMAGING W/OUT INTERP RETATION Final Result [facility] * MRI NeuroVascular Outside (No Interpretation) (09/05/2015 7:58 AM EDT) Narrative [facility] - 09/05/2015 7:58 AM EDT This study is for PACS storage only and not for interpretation. us Claire Hilliard MD, PhD IMG OUTSIDE IMAGING W/OUT INTERP RETATION Final Result [facility] documented in this encounter Visit Diagnoses Not on filedocumented in this encounter Additional Health Concerns Infection Onset Date Last Indicated Resolved Time CoV-Risk 11/24/2021 11/24/2021 11/25/2021 11:1 4 PM EST COVID-19 11/24/2021 11/24/2021 12/15/2021 1:23 AM EST CoV-Risk 10/26/2022 10/26/2022 11/06/2022 1:24 AM EST Resp-Risk 11/02/2025 11/02/2025 documented as of this encounter Care Teams Supervisor Printing Shop Relationship Specialty Start Date End Date Thuy Rivera MD [address] [place] [phone] PCP - General Pediatrics 06/03/15 documented as of this encounter Additional Source Comments The information contained in this document represents components of the legal health record. It is not the complete legal health record.[facility]
--- OUTSIDE RECORDS SUMMARY | 2025-11-11 18:01 | XMS_ITS | Clinical Summary ---
Author Organization [facility] Address [address] [place] [address] Phone Care Team Providers Care Deputy Probation Officer Name Role Phone Thuy Rivera MD Primary Care Provider [phone] Allergies Active Allergy Reactions Criticality Noted Date Comments Codeine Nausea And Vomiting 06/10/2014 Morphine Nausea And Vomiting 06/10/2014 Percocet (Oxycodone-Acetaminophen) Nausea And Vomiting 06/10/2014 Percodan (Oxycodone Qza-Bbvlyxmkb-Lcx) Nausea And Vomiting 06/10/2014 Medications VENTOLIN HFA 90 mcg/actuation inhaler 1 Active FLOVENT HFA 220 mcg/actuation inhaler 1 Active SPIRIVA WITH HANDIHALER 18 mcg inhalation capsule 1 Active naproxen (NAPROSYN) 500 MG tablet Take 1 tablet (500 mg total) by mouth 2 (two) times a day for 3 days. Then twice daily as needed for pain, inflammation 20 tablet 2 Active Additional Information Patient not taking.Reported on 11/10/2025 diclofenac sodium (VOLTAREN) 1 % Gel Use topical BID 5 Active ibuprofen (ADVIL,MOTRIN) 800 MG tablet Take 800 mg by mouth 3 (three) times a day. 5 Active doxycycline monohydrate (MONODOX) 100 MG capsule Take 1 capsule (100 mg total) by mouth 2 (two) times a day. 2 capsule 5 Active Additional Information Patient not taking.Reported on 11/10/2025 ergocalciferol (DRISDOL) 50,000 unit capsule Take 1 capsule by mouth once a week. Active BREO ELLIPTA 200-25 mcg/dose inhaler Inhale 1 puff into the lungs daily. 5 Active benzonatate (TESSALON) 100 MG capsule Take 2 capsules (200 mg total) by mouth 3 (three) times a day as needed for cough. 21 capsule 5 Active predniSONE (DELTASONE) 20 MG tablet Take 3 tablets (60 mg total) by mouth daily for 5 days. 15 tablet 5 025 Active Problems Problem Noted Date Diagnosed Date Forgetfulness 02/13/2019 Chronic obstructive lung disease 12/28/2016 Postmenopausal osteoporosis 06/21/2014 Cerebral aneurysm, nonruptured 03/31/2012 Anxiety state 02/24/2012 Depressive disorder 02/24/2012 Tobacco use disorder, continuous 02/24/2012 Encounters Date Type Department Care Team Description 11/02/2025 10:12 AM EST Hospital Encounter [facility] [address] [place] [address] Soni Patton FNP 11/02/2025 9:50 AM EST Office Visit [facility] at [address] [address] Soni Patton FNP Viral upper respiratory tract infection with cough (Primary Dx) from Last 3 Months Immunizations Immunization Administration Dates Next Due Influenza Quadrivalent Preservative Free IM 11/0 02/2021,11/20/2020 Influenza Quadrivalent w/ Preservative IM 2019,10/26/2018,09/10/2016 [...] Sign Reading Time Taken Comments Blood Pressure 144/86 11/02/2025 9:44 AM EST Pulse 84 11/02/2025 9:44 AM EST Temperature 36.8 C (98.2 F) 11/02/2025 9:44 AM EST Respiratory Rate 16 11/02/2025 9:44 AM EST Oxygen Saturation 97% 11/02/2025 9:44 AM EST Inhaled Oxygen Concentration - - Weight 59.9 [...] 2 - PCV) 1980 PAP SMEAR 1982 COLONOSCOPY 2006 FIT TEST 2006 FOBT 2006 SIGMOIDOSCOPY 2006 VIRTUAL COLONOSCOPY 2006 RSV VACCINE (1 - Risk 50-74 years 1-dose series) 2011 ZOSTER VACCINES (1 of 2) 2011 INFLUENZA VACCINE (#1) 2025 , 11/20/2020, 11/22/2019, Additional history exists COVID-19 VACCINE ( season) 2025 12/05/2021, 01/13/2021, 12/23/2020 MAMMOGRAM 10/07/2025 10/07/2023, 10/0 01/2019, 07/19/2018 Adult Td,Tdap Booster 12/09/2025 12/09/2015 COLOGUARD 08/29/2028 08/29/2025 COLORECTAL CANCER SCREENING 08/29/2028 LIPID PANEL 07/29/2030 07/29/2025, 04/14, 05/21/2019 HEPATITIS [...] Viral upper respiratory tract infection with cough POCT SARS-COV-2, INFLUENZA A/B, RSV, PCR Routine 11/02/2025 9:46 AM EST LIPID PANEL Routine 07/29/2025 8:36 AM EDT Breast cancer screening by mammogram Age-related osteoporosis without current pathological fracture Screen for colon cancer Well adolescent visit from Last 3 Months or Most Recently Relevant to Health Maintenance Results * XR CHEST PA AND LATERAL 2 VIEWS (11/02/2025 10:16 AM EST) Anatomical Region Laterality Modality Chest Computed Radiogr aphy 11/02/2025 10:4 5 AM EST Impressions 11/02/2025 10:46 AM EST No focal consolidation or overt pulmonary edema. Narrative 11/02/2025 10:46 AM EST XR CHEST PA AND LATERAL 2 VIEWS Referring clinician's provided indication for this examination in Epic: Cough; cough, increase copd , uri, hx [...] consolidation or overt pulmonary edema. Soni Patton MAINTENANCE MECHANIC 2ND SHIFT IMG XR CHEST Final Resul t * POCT SARS-CoV-2, Influenza A/B, RSV, PCR (11/02/2025 9:46 AM EST) [facility] SARS-Cov-2 PCR Negative Negative 11/02/2025 10:27 AM EST [facility] POC Influenza A Negative Negative 11/02/2025 10:27 AM EST [facility] POC Influenza B Negative Negative 11/02/2025 10:27 AM EST [facility] RSV PCR Negative Negative 11/02/2025 10:27 AM EST [facility] Swab (Anterior Nares) 11/02/2025 9:46 AM EST 11/02/2025 10:27 AM EST Soni HAWLEYP LAB POCT DOCKED DEVICE UNSO LICTED RESULTS Final Result [facility] [address] [address], [facility] [phone] * (ABNORMAL) Lipid panel (07/29/2025 8:36 AM EDT) [facility] HDL 52 mg/dL [facility] Comment: Interpretation <40 mg/dL: Low HDL cholesterol (major risk factor for CHD) Greater than or equal to 60 mg/dL: High HDL cholesterol ( negative risk factor for CHD) HDL - cholesterol is affected by a number of factors, e.g. smoking, excerise, hormones, sex and age. CHOLESTEROL 209 0 - 240 mg/dL [facility] TRIGLYCERIDES 89 30 - 160 mg/dL [facility] LDL 139(H) 50 - 129 mg/dL [facility] Comment: LDL levels in terms of risk for coronary heart disease: <100 mg/dL: Optimal 100-129 mg/dL: Near or above optimal 130-159 mg/dL: Borderline high 160-189 mg/dL: High >190 mg/dL: Very High CARDIAC RISK RATIO 4.0 3.3 - 4.4 C [facility] Blood 07/29/2025 8:36 AM EDT 07/29/2025 8:42 AM EDT us Thuy Rivera MD LAB BLOOD BKR ORDERABLES Lara linares Result [facility] [address] [place] [address] from Last 3 Months or Most Recently Relevant to Health Maintenance Additional Health Concerns Infection Onset Date Last Indicated Resp-Risk 11/02/2025 11/02/2025 Insurance [facility] MEDICARE PART A & [place] & B [facility] MEDICARE PART A & B [facility] MEDICARE PART A & B Member Subscriber Plan / Payer (Ef fective 2015-Present) Name:Angie Okeefe Member ID:[id number] Relation to Subscriber:Self Name:Angie Okeefe Subscriber ID:[id number] Payer ID:[id number] Group ID:Not on file Type:Medicare Address: [facility] [email or web address] [facility] [address] [place] [address] Care Teams Deputy Probation Officer Relationship Specialty Start Date End Date Thuy Rivera MD [address] [id number] PCP - General Pediatrics 06/03/15 Additional Source Comments The information contained in this document represents components of the legal health record. It is not the complete legal health record.[facility]
--- OUTSIDE RECORDS SUMMARY | 2025-11-11 18:02 | XMS_ITS | Encounter Summary ---
Author Organization [facility] Address [address] [place] [address] [place] [address] Phone Care Team Providers Care [employer] Name Role Phone Thuy Rivera MD Primary Care Provider [phone] Encounter Details Date Type Department Care Team (Latest Contact Info) Description 05/21/2019 Transcribe Orders [address] [address] Thuy Rivera MD [address] [place] [address] Senile osteoporosis (Primary Dx) Social History Tobacco [...] (05/21/2019 8:09 AM EDT) HDL 59 mg/dL [facility] Comment: Interpretation <40 mg/dL: Low HDL cholesterol (major risk factor for CHD) Greater than or equal to 60 mg/dL: High HDL cholesterol ( negative risk factor for CHD) HDL - cholesterol is affected by a number of factors, e.g. smoking, excerise, hormones, sex and age. CHOLESTEROL 190 0 - 240 mg/dL [facility] TRIGLYCERIDES 60 30 - 160 mg/dL [facility] LDL 119 50 - 129 mg/dL [facility] Comment: LDL levels in terms of risk for coronary heart disease: <100 mg/dL: Optimal 100-129 mg/dL: Near or above optimal 130-159 mg/dL: Borderline high 160-189 mg/dL: High >190 mg/dL: Very High CARDIAC RISK RATIO 3.2(L) 3.3 - 4.4 C [facility] Blood 05/21/2019 8:09 AM EDT 05/21/2019 10:23 AM EDT us Thuy Rivera MD LAB BLOOD BKR ORDERABLES Lara l Result Performing Organization Address City/[facility] Co de Phone Number [address] [address] * LFTs (hepatic panel) (05/21/2019 8:09 AM EDT) ALKALINE PHOSPHATASE 74 39 - 117 U/L [facility] TOTAL BILIRUBIN 0.3 0.0 - 1.2 mg/dL [facility] DIRECT BILIRUBIN <0.2 0 - 0.3 mg/dL [facility] Bilirubin (Indirect) NOT CALCULATED 0 - 1.5 mg/dL [facility] AST 21 0 - 37 U/L [facility] ALT 11 0 - 40 U/L [facility] TOTAL PROTEIN 6.8 6.5 - 8.0 g/dL [facility] ALBUMIN 4.0 3.9 - 4.8 g/dL [facility] GLOBULIN 2.8 1 - 4.8 g/dL [facility] A/G Ratio 1.43 1.00 - 4.80 RATIO [facility] Blood 05/21/2019 8:09 AM EDT 05/21/2019 10:23 AM EDT us Thuy Rivera MD LAB BLOOD BKR ORDERABLES Lara l Result Performing Organization Address City/[facility]/ZIP Co de Phone Number [address] [address] * (ABNORMAL) 25-OH vitamin D (05/21/2019 8:09 AM EDT) 25 OH VIT D (TOTAL) 28(L) 30 - 60 ng/mL [facility] Blood 05/21/2019 8:09 AM EDT 05/21/2019 10:23 AM EDT Thuy Rivera MD LAB BLOOD BKR ORDERABLES Lara l Result Performing Organization Address City/[facility]/ZIP Co de Phone Number [address] [address] * TSH (05/21/2019 8:09 AM EDT) TSH 1.98 0.27 - 4.20 uIU/mL [facility] Blood 05/21/2019 8:09 AM EDT 05/21/2019 10:23 AM EDT us Thuy Rivera MD LAB BLOOD BKR ORDERABLES Lara l Result Performing Organization Address [facility]/ZIP Co de Phone Number [address] [address] * Basic metabolic panel (05/21/2019 8:09 AM EDT) SODIUM 145 133 - 146 mmol/L [facility] CHLORIDE 106 96 - 108 mmol/L [facility] POTASSIUM 5.0 3.3 - 5.1 mmol/L [facility] CO2 27 21 - 35 mmol/L [facility] BUN 16 6 - 19 mg/dL [facility] CREATININE 0.70 0.5 - 1.5 mg/dL [facility] GLUCOSE 85 70 - 99 mg/dL [facility] CALCIUM 9.2 8.4 - 10.3 mg/dL [facility] EGFR 96 >59 mL/min/1.7 3m2 [facility] Comment:If patient is black, multiply result by 1.159. Estimated glomerular filtration rate calculated using the CKD-EPI equation. ANION GAP 17 10 - 20 mmol/L [facility] Blood 05/21/2019 8:09 AM EDT 05/21/2019 10:23 AM EDT us Thuy Rivera MD LAB BLOOD BKR ORDERABLES Lara linares Result [facility] [address] [place] [address] * (ABNORMAL) CBC and differential (05/21/2019 8:09 AM EDT) WBC 9.49 3.40 - 11.20 K/uL [facility] RBC 4.55 3.80 - 4.80 M/uL [facility] HGB 13.6 12.0 - 15.0 g/dL [facility] HCT 40.9 36.0 - 46.0 % [facility] PLT 315 130 - 400 K/uL [facility] MCV 89.9 79.0 - 98.0 fL [facility] MCH 29.9 27.0 - 34.8 pg [facility] MCHC 33.3 31.5 - 36.0 g/dL [facility] RDW 13.2 10.8 - 14.6 % [facility] MPV 9.3(L) 9.4 - 12.4 fl [facility] NRBC 0.00 0.00 /100 WBCs [facility] ABSOLUTE NRBC 0.00 0.00 K/uL [facility] DIFF METHOD Manual [facility] NEUTS 47.0 45.30 - 77.70 % [facility] LYMPHS 45.0(H) 12.30 - 39.70 % [facility] Comment:Few atypical Lymphs seen. MONOS 6.0 4.10 - 12.80 % [facility] EOS 2.0 0 - 7.2 % [facility] ABSOLUTE NEUTS 4.46 1.40 - 7.70 K/uL [facility] ABSOLUTE LYMPHS 4.27(H) 0.60 - 3.20 K/uL [facility] ABSOLUTE MONOS 0.57 0.11 - 0.59 K/uL [facility] ABSOLUTE EOS 0.19 0.01 - 0.50 K/uL [facility] Blood 05/21/2019 8:09 AM EDT 05/21/2019 10:23 AM EDT us Thuy Rivera MD LAB BLOOD BKR ORDERABLES Lara l Result Performing Organization Address City/[facility]/ZIP Co de Phone Number [address] [address] * Vitamin B12 (05/21/2019 8:09 AM EDT) VITAMIN B12 1,165 232 - 1,245 pg/mL [facility] Blood 05/21/2019 8:09 AM EDT 05/21/2019 10:23 AM EDT us Thuy Rivera MD LAB BLOOD BKR ORDERABLES Lara l Result Performing Organization Address [facility]/ZIP Co de Phone Number [address] [address] documented in this encounter Visit Diagnoses Diagnosis Senile osteoporosis- Primary documented in this encounter Additional Health Concerns Infection Onset Date Last Indicated Resolved Time CoV-Risk 11/24/2021 11/24/2021 11/25/2021 11:1 4 PM EST COVID-19 11/24/2021 11/24/2021 12/15/2021 1:23 AM EST CoV-Risk 10/26/2022 10/26/2022 11/06/2022 1:24 AM EST Resp-Risk 11/02/2025 11/02/2025 documented as of this encounter Care Teams [employer] Relationship Specialty Start Date End Date Thuy Rivera MD [address] [place] [id number] PCP - General Pediatrics 06/03/15 documented as of this encounter Additional Source Comments The information contained in this document represents components of the legal health record. It is not the complete legal health record.[facility]
[2025-11-11 19:42] LABS: Resp Syncy Virus RNA Qual PCR NEGATIVE (Negative); SARS COV2 PCR INHOUSE NEGATIVE (Negative)
== END 2025-11-11 16:32 | disposition home or self-care (01) ==
LOC: HO.CHCLNP 16:31
PROVIDERS: Visit Provider Family Medicine
DX: R05.8 Other specified cough (principal)
CPT/HCPCS: 87637